=== PATIENT | male | born 1960 | race African-American/Black ===

== ENCOUNTER 2016-06-27 11:28 | Emergency (ER) | payer MEDICAID ==
[~2016-06-27] VITALS: Ht 165.1 cm; Wt 88.5 kg
[~2016-06-27 11:28] MED LIST: ASPI-COR81 M1 PO; ASPIRIN ADULT L81 M3 PO; ATENOLOL25 M1 PO; ATENOLOL25 MG PO; ATORVASTATIN CA40 MG PO; CARISOPRODOL 3350 MG PO; CHOLESTEROL PO; CLONAZEPAM 1MG T1 MG PO; DELTASONE5 MG PO; FLEXERIL10 MG PO; FUROSEMIDE 40MG40 M1 PO; GABAPENTIN 600600 MG PO; GABAPENTIN800 MG PO; GLIPIZIDE10 MG PO; HYDROCHLOROTHIA25 M1 PO; HYDROCODONE-APA1 TA1 PO; HYDROCODONE-APA1 TA2 PO; HYDROCODONE/ACE1 TA5 PO; LASIX 20MG. TAB20 MG PO; LISINOPRIL 20MG20 MG PO; LISINOPRIL HCTZ1 TAB PO; LISINOPRIL40 MG PO; LOMOTIL 0.025 M1 TAB PO; LORTAB 5/500 501 TAB PO; LOVASTATIN40 MG PO; MAGNESIUM CITRA1 BOT PO; MELOXICAM15 MG PO; METFOMIN HYDRO850 MG PO; METFORMIN850 MG PO; NAPROSYN500 M1 PO; NEXIUM40 MG PO; NORFLEX100 MG PO; OMEPRAZOLE20 MG PO; PANTOPRAZOLE SO40 M1 PO; PANTOPRAZOLE SO40 MG PO; PERCOCET 325 MG1 TA4 PO; PERCOGESIC EXTR1 TAB PO; PERCOGESIC1 TAB PO; POTASSIUM CHLO10 ME3 PO; POTASSIUM CHLO10 MEQ PO; PRAVACHOL40 MG PO; PREDNISONE 20MG20 MG PO; PREDNISONE 5MG.5 MG PO; QUETIAPINE FUM100 M2 PO; ROBAXIN 500 MG500 MG PO; ROBAXIN-750750 MG PO; ROPINIROLE HYDRO1 M1 PO; ULTRAM50 MG PO; VENTOLIN H0.09 MG/Ac IH; ZANAFLEX4 M1 PO; ZOFRAN4 MG PO
[2016-06-27] MEDS ORDERED: FLEXERIL10 MG PO (12:18)
--- NOTE | 2016-06-27 12:19 | Emergency Room Report ---
History of Present Illness Time Seen by 1150 Presenting Problem in Triage Pt arrived:Walked Presenting Problem:PT STATES HE HAS NECK PAIN AND NUMBNESS ON THE LEFT SIDE OF HIS NECK THAT GOES DOWN INTO HIS ARM. STARTED 1 WEEK AGO. 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 N Clinical Suspician of Infection? N Mental Status: 1 - Regular (Normal Baseline) Sepsis Risk:Low Sepsis Risk Have you (or family members/close friends) recently traveled outside the [place]? N If Yes, where/when: Have you had exposure to infectious disease within the past month? TB? Other? Specify: Chronic neck pain with exacerbation one year ago; has spasm for the past week to left shoulder which is positional, reports subjective numbness to arm. No diaphoresis, cough, fever, chest pain, syncope or SOB. No edema. ALLERGIES Coded Allergies: naproxen (Mild, NA-NAUSEA/VOMITING 03/16/16) tramadol (Mild, NA-NAUSEA 03/16/16) Home Medications Active Scripts ACETAMINOPHEN/DIPHENHYDRAMINE (Percogesic Extra Str Caplet) 1 TAB PO QIDP PRN pain #30 TAB Prov: 03/07/16 Reported Medications Gabapentin (Gabapentin 800MG) 800 MG PO Q8 #90 Lisinopril (Lisinopril 40MG) 40 MG PO DAILY #15 Potassium Chloride (POTASSIUM CHLORIDE 10mEq CAP) 10 MEQ PO BID #60 Furosemide 40 MG PO DAILY #30 TAB METFORMIN HCL (Metformin HCl) 850 MG PO BID #60 Quetiapine Fumarate 100 MG PO DAILY #30 Atorvastatin Calcium 40 MG PO QHS #30 Aspirin (Aspirin EC) 81 MG PO DAILY #30 Clonazepam (Clonazepam 1MG) 1 MG PO TID #90 ROPINIROLE HCL (Ropinirole Hydrochloride) 1 MG PO QHS #30 HYDROCHLOROTHIAZIDE (Hydrochlorothiazide) 25 MG PO DAILY Glipizide 10 MG PO DAILY History Medical History General CAD? No Angina: Yes [place]: No Hypertension? Yes Hyperlipidemia? Yes CHF? Yes DVT? No PE? No COPD? Yes Asthma? No Anemia? No GERD? No Gastric ulcers? No GI Bleed? No Hernia? No Thyroid Problems? No Hypothyroidism? No CVA? No Seizures? No Diabetes? Yes Insulin Dependent: No Insulin Pump: No Home FSBS? No Renal Insuffiency? Yes End Stage Renal Disease? No UTI? No Stones? Yes BPH? Yes GB Disease: Yes Nephritic Syndrome? No Asplenia? No Hepatitis? No Sickle Cell Disease? No Arthritis? Yes Migraines? No Cataracts? No Glaucoma? No MRSA? No HIV? No TB? No Anxiety? Yes Depression? Yes Cancer? No More? Yes Additional hx: SVT Immunization Hx DT/Tetanus 1-4 YRS Flu Refused Pneumonia Never Had Surgical Hx Previous Surgery?Y GALLBLADDER R KNEE X2 L SHOULDER X 2 Family History Family Hx Diabetes Yes CAD Yes Hypertension Yes Hyperlipidemia Yes Cancer Yes TB No Social History Smoking Hx Smoker: Current Some Day Smoker Tobacco: Yes Type Cigarettes Packs/day 2 1/2 - 3 Packs Alcohol Alcohol: No Review of Systems All Other Systems Reviewed and Negative Musculoskeletal see HPI Psychiatric/Neurological see HPI Physical Exam Vital Signs Vital Signs Date Time Temp Pulse Resp B/P Pulse O2 O2 Flow FiO2 Ox Delivery Rate 06/27 1133 97.8 72 20 179/86 98 General Appearance normal appearance, WD/WN, no apparent distress Eye Exam - bilateral eye normal exam, bilateral eye PERRL, bilateral eye EOMI Neck tender lateral, spasm with trigger point, left trapezius, reproduces pain completely. Worse with abduction of LUE. Respiratory Status Yes: trachea midline, chest symmetrical, tender on palpation. No: respiratory distress, non tender chest, use of accessory muscles, pain on inspiration, pain on expiration, productive cough, non productive cough (see above: L trap. spasm) . Lung Sounds bilateral: normal breath sounds, lungs clear. 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 No Departure Departure Time of Disposition 1214 Disposition DC Home or Self Care(routine) Clinical Impression Primary Impression: Spasm of thoracic back muscle Condition STABLE Patient Instructions DI for Musculoskeletal Pain Additional Instructions Plain Tylenol, Flexeril, see family doctor of choice from list provided in one week for follow up Discharge Counseling Counseled pt/family regarding diagnosis, test results, medications/RX, home care, follow up needs Prescriptions Current Visit Scripts Cyclobenzaprine Hcl (Flexeril) 5 MG PO Q8HP PRN spasm #6 TAB ED Critical Care Critical Care No at 8169
[2016-06-27 12:34] VITALS: BP 179/86
== END 2016-06-27 12:36 | disposition home or self-care (01) ==
LOC: ER 11:28
DX: M62.830 Muscle spasm of back (principal); Z72.0 Tobacco use; F41.8 Other specified anxiety disorders; E11.9 Type 2 diabetes mellitus without complications; J44.9 Chronic obstructive pulmonary disease, unspecified; I10 Essential (primary) hypertension

== ENCOUNTER 2016-07-10 00:21 | Observation (INO) | payer MEDICAID ==
[2016-07-10] VITALS (12 sets, daily range): BP systolic 87–137; BP diastolic 52–87
[~2016-07-10] VITALS: Ht 167.6 cm; Wt 95.0 kg
--- NOTE | 2016-07-10 00:38 | Emergency Room Report ---
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 PT DENIE ANY PRECIPITATING FACTORS. 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 N Clinical Suspician of Infection? N Mental Status: 1 - Regular (Normal Baseline) Sepsis Risk:Severe Sepsis Risk Have you (or family members/close friends) recently traveled outside the [place]? N If Yes, where/when: Have you had exposure to infectious disease within the past month? N TB? Other? Specify: Source patient, RN notes reviewed, EMS, old records Exam Limitations no limitations Comment pt with sudden onset of fast hr - this is the 3rd time since may- no chest pain prior to event - he denied any cocaine - pt has not seen card - no known heart disease Cardiac Chest Pain Chest pain indicative of cardiac No Timing/Duration this evening Severity moderate ALLERGIES Coded Allergies: naproxen (Mild, NA-NAUSEA/VOMITING 03/16/16) tramadol (Mild, NA-NAUSEA 03/16/16) Home Medications Active Scripts Cyclobenzaprine Hcl (Flexeril) 5 MG PO Q8HP PRN spasm #6 TAB Prov: 06/27/16 ACETAMINOPHEN/DIPHENHYDRAMINE (Percogesic Extra Str Caplet) 1 TAB PO QIDP PRN pain #30 TAB Prov: 03/07/16 Reported Medications Gabapentin (Gabapentin 800MG) 800 MG PO Q8 #90 Lisinopril (Lisinopril 40MG) 40 MG PO DAILY #15 Potassium Chloride (POTASSIUM CHLORIDE 10mEq CAP) 10 MEQ PO BID #60 Furosemide 40 MG PO DAILY #30 TAB METFORMIN HCL (Metformin HCl) 850 MG PO BID #60 Quetiapine Fumarate 100 MG PO DAILY #30 Atorvastatin Calcium 40 MG PO QHS #30 Aspirin (Aspirin EC) 81 MG PO DAILY #30 Clonazepam (Clonazepam 1MG) 1 MG PO TID #90 ROPINIROLE HCL (Ropinirole Hydrochloride) 1 MG PO QHS #30 HYDROCHLOROTHIAZIDE (Hydrochlorothiazide) 25 MG PO DAILY Glipizide 10 MG PO DAILY History Medical History General CAD? No Angina: Yes [place]: No Hypertension? Yes Hyperlipidemia? Yes CHF? Yes DVT? No PE? No COPD? Yes Asthma? No Anemia? No GERD? No Gastric ulcers? No GI Bleed? No Hernia? No Thyroid Problems? No Hypothyroidism? No CVA? No Seizures? No Diabetes? Yes Insulin Dependent: No Insulin Pump: No Home FSBS? No Renal Insuffiency? Yes End Stage Renal Disease? No UTI? No Stones? Yes BPH? Yes GB Disease: Yes Nephritic Syndrome? No Asplenia? No Hepatitis? No Sickle Cell Disease? No Arthritis? Yes Migraines? No Cataracts? No Glaucoma? No MRSA? No HIV? No TB? No Anxiety? Yes Depression? Yes Cancer? No More? Yes Additional hx: SVT Immunization Hx DT/Tetanus 1-4 YRS Flu Refused Pneumonia Never Had Surgical Hx Previous Surgery?Y GALLBLADDER R KNEE X2 L SHOULDER X 2 Family History Family Hx Diabetes Yes CAD Yes Hypertension Yes Hyperlipidemia Yes Cancer Yes TB No Social History Smoking Hx Smoker: Current Every Day Smoker Tobacco: Yes Type Cigarettes Packs/day 2 1/2 - 3 Packs Alcohol Alcohol: No Drugs none Review of Systems All Other Systems Reviewed and Negative Constitutional denies fever Eyes denies drainage ENT denies: ear discharge, epistaxis, throat pain. Respiratory denies cough, denies shortness of breath, denies wheezing Cardiovascular denies chest pain, denies syncope Gastrointestinal denies abdominal pain, denies diarrhea, denies vomiting Genitourinary denies: dysuria, frequency, hesitancy, hematuria. Musculoskeletal denies back pain, denies joint pain, denies neck pain Skin denies rash Psychiatric/Neurological denies headache, denies seizure Physical Exam Vital Signs Vital Signs Date Time Temp Pulse Resp B/P Pulse O2 O2 Flow FiO2 Ox Delivery Rate 07/10 0022 98.2 174 18 87/52 94 General Appearance no apparent distress Eye Exam - bilateral eye PERRL, bilateral eye EOMI Ear, Nose, Throat normal ENT inspection Neck supple Respiratory Status No: respiratory distress. Lung Sounds bilateral: rhonchi. 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 No Results/Orders Laboratory Tests 07/10/16 0033: POC Glucose 180 H 07/10/16 0025: Sodium 139, Potassium 3.9, Chloride 104, Carbon Dioxide 24, BUN 11, Creatinine 1.2, Estimated Creat Clear 91, Estimated GFR (MDRD) 63, Glucose 184 H, Calcium 8.5, Magnesium 1.7, Total Bilirubin 0.6, AST 26, ALT 24, Alkaline Phosphatase 109, Creatine Kinase 212, CK-MB (CK-2) Rel Index 0.6, CK and CKMB Interp 1.3, Troponin I < 0.02, Total Protein 6.5, Albumin 3.3 L, Globulin 3.2, Albumin/ Globulin Ratio 1.0 L, TSH 1.80, Thyroxine (T4) 8.6, WBC 6.7, RBC 4.65, Hgb 15.0 , Hct 46.1, MCV 99.1 H, RDW 15.0, Plt Count 293, MPV 6.0 L, Gran % 55.0, Gran # 3.7, Lymphocytes % 36.3, Monocytes % 6.1, Eosinophils % 2.0, Basophils % 0.6, Lymphocytes # 2.4, Monocytes # 0.4, Eosinophils # 0.1, Basophils # 0.0, PUBS MCHC 32.6, MCH 32.3 H, Alcohols 0 Current Medication Orders Sig/Gia Start time Last Medication Dose Route Stop Time Status Admin Diltiazem HCl 10 MG ONCE ONE 07/10 44 DC 07/10 IV 07/10 0046 0042 Diltiazem HCl 100 MG ONCE ONE 07/10 44 AC 07/10 Sodium Chloride 100 ML IV 07/104 0042 Sodium Chloride 10 ML PRN PRN 07/10 44 AC IV 07/11 003 Sodium Chloride 1,000 ML .Q1H1M 07/10 44 AC 07/10 IV 07/10 0145 0042 Sodium Chloride 10 ML PRN PRN 07/10 44 AC IV 07/11 003 Sodium Chloride 1,000 ML .STK-MED ONE 07/10 0038 DC IV Diltiazem HCl 0 .STK-MED ONE 07/10 0037 DC IV Diltiazem HCl 0 .STK-MED ONE 07/10 0036 DC IV Sodium Chloride 100 ML .STK-MED ONE 07/10 0036 DC IV Orders Procedure Date/time Status Decision to admit 07/10 0112 Active ELECTROCARDIOGRAM REQUEST 07/10 33 Active CHEST-PORTABLE 07/10 003 Active IV SALINE LOCK 07/10 003 Active URINALYSIS/COMPLETE 07/10 33 Active THYROID STIMULATING HORMONE 07/10 33 Complete THYROXINE (T4) 07/10 33 Complete MAGNESIUM 07/10 33 Complete DRUG ABUSE SCREEN (TRIAGE) 07/10 003 Active COMPLETE METABOLIC PANEL 07/10 003 Complete CBC WITH AUTO DIFF 07/10 33 Complete CARDIAC ENZYMES 07/10 33 Complete ALCOHOL 07/10 33 Complete FINGERSTICK BLOOD SUGAR 07/10 0033 Complete CM/EKG CM/EKG 1 Monitor Rhythm Supra Ventricular Tach EKG ST depression CM/EKG 2 Monitor Rhythm Normal Sinus Rhythm EKG non-spec. ST/Twave chgs XRAY/CT/US XRAY/CT/US XRAY chest XR interpretation by reviewed by me Xray Results abnormal (cm) Departure Departure Time of Disposition 0111 Disposition Still a Patient Clinical Impression Primary Impression: Cardiac arrhythmia Qualifiers: Arrhythmia type: supraventricular tachycardia Qualified Code: I47.1 - Supraventricular tachycardia Secondary Impressions: Diabetes mellitus Qualifiers: Diabetes mellitus type: type 2 Diabetes mellitus complication status: with unspecified complications Diabetes mellitus retirement insulin use: with retirement use Qualified Code: E11.8 - Type 2 diabetes mellitus with unspecified complications Condition STABLE ED Critical Care Critical Care No at 0130
[2016-07-10 00:44] LABS: LYMPH # 2.4 K/mm3 (0.7-4.5); LYMPH % 36.3 % (10-50)
[2016-07-10 01:10] LABS: BUN 11 mg/dL (7-18); GFR (ESTIMATED) 63 ML/MIN (>60)
--- NOTE | 2016-07-10 07:31 | PHARMACY CLINIC NOTE ---
Patient Demographics Patient Demographics Admission date: 07/10/16 Date: 07/10/16 Time: 0731 Allergies Coded Allergies: naproxen (Mild, NA-NAUSEA/VOMITING 03/16/16) tramadol (Mild, NA-NAUSEA 03/16/16) HEIGHT- FT: 5 IN: 6.00 K.243 VTE General Information Labs: Laboratory Tests 07/10 0025 Hematology Hgb (14.1 - 18.0 g/dL) 15.0 Hct (42.0 - 52.0 %) 46.1 Plt Count (142 - 424 K/mm3) 293 Disclaimer The following section includes nursing documentation that has been pulled in for pharmacy review. Patient's VTE score: 4 Patient's VTE Risk: LOW RISK Clinical trial participant? No VTE prophylaxis [id number] VTE prophylaxis ordered? Yes Type of prophylaxis/treatment: YOSSI at 0731
--- NOTE | 2016-07-10 08:04 | RADIOLOGY REPORT PS360 ---
CHEST-PORTABLE HISTORY: Shortness of breath sob ORDERING PHYSICIAN: Ranjan South MD PATIENT AGE: 55 years COMPARISON: 05/08/2016 FINDINGS: There is motion artifact with low lung volumes. Atelectatic or fibrotic changes present in the right lower lobe. There is increased markings in the mid and lower lung zones likely accentuated by the low lung volumes and portable technique. Peribronchial inflammatory changes/pneumonitis is considered. Upright PA and lateral chest suggested for further evaluation if patient can tolerate. IMPRESSION: 1. Increased markings in the mid and lower lung zones likely accentuated by the low lung volumes and portable technique. Pneumonitis is however considered as well
--- NOTE | 2016-07-10 08:11 | CONSULT NOTE ---
See Addendum Standard Demographics Patient Demo Date of Consultation: 07/10/16 Referring Provider: Shivani South MD Reason for Consultation: SVT, NSTEMI PRIMARY DIAGNOSIS: CARDIAC ARRHYTHIAMA Problem list Problem list: 1. Coronary artery disease, mild nonflow limiting disease by cath 04/2015 2. Diabetes mellitus treated for about 8 years 3. Tobacco use 4. Hypertension 5. Hyperlipidemia 6. Chronic obstructive pulmonary disease 7. Obesity History of present illness: History of present illness: 55-year-old black male with known diabetes, hypertension, hyperlipidemia and mild coronary disease with previous cath in April 2015 present to the emergency department last evening for chest discomfort, pressure, heaviness. Symptoms onset at rest. In the emergency department heart rate of found to be in the 170s beats per minute range. Electrocardiogram revealed supraventricular tachycardia with inferior and lateral ST segment depression. Patient had been treated with 3 doses of adenosine in route in the ambulance without success in converting the patient was sinus rhythm. He was given IV Cardizem in the emergency room with subsequent conversion to sinus rhythm. Patient relates symptoms dramatically improved but have not completely resolved. He complains of a soreness in the chest which is worse with movement and deep breathing. Patient 's troponins have returned positive overnight. Cardiology consulted for further evaluation and treatment. Patient does relate recent hospitalization at [facility] for similar episode. He was referred to cardiology for possible ablation therapy in June but the patient was unable to keep the appointment and has not rescheduled. He states the metoprolol to his placed on has not significantly altered frequency or duration of the symptoms. Past Medical History: General: Hypertension Yes CVA No Seizures No TB No COPD Yes Asthma No Diabetes Yes Insulin Dependent No Insulin Pump No Angina Yes OK No Hyperlipidemia Yes Urinary No Cancer No Rheumatic H.D. No Ulcers No MRSA No GB Disease Yes Other WEEKLY Additional hx SVT Past Surgical HX: Previous Surgery?Y GALLBLADDER R KNEE X2 L SHOULDER X 2 Allergies Coded Allergies: naproxen (Mild, NA-NAUSEA/VOMITING 03/16/16) tramadol (Mild, NA-NAUSEA 03/16/16) Home medications: Active Scripts Cyclobenzaprine Hcl (Flexeril) 5 MG PO Q8HP PRN spasm #6 TAB Prov: 06/27/16 ACETAMINOPHEN/DIPHENHYDRAMINE (Percogesic Extra Str Caplet) 1 TAB PO QIDP PRN pain #30 TAB Prov: 03/07/16 Reported Medications Gabapentin (Gabapentin 800MG) 800 MG PO Q8 #90 Lisinopril (Lisinopril 40MG) 40 MG PO DAILY #15 Potassium Chloride (POTASSIUM CHLORIDE 10mEq CAP) 10 MEQ PO BID #60 Furosemide 40 MG PO DAILY #30 TAB METFORMIN HCL (Metformin HCl) 850 MG PO BID #60 Quetiapine Fumarate 100 MG PO DAILY #30 Atorvastatin Calcium 40 MG PO QHS #30 Aspirin (Aspirin EC) 81 MG PO DAILY #30 Clonazepam (Clonazepam 1MG) 1 MG PO TID #90 ROPINIROLE HCL (Ropinirole Hydrochloride) 1 MG PO QHS #30 HYDROCHLOROTHIAZIDE (Hydrochlorothiazide) 25 MG PO DAILY Glipizide 10 MG PO DAILY Current Medications: Current Medications Aspirin 81 MG DAILY PO Gabapentin 800 MG TID PO Lisinopril 40 MG DAILY PO Polyethylene Glycol 17 GM DAILY PO Fentanyl Citrate 25 MCG PRN PRN IV Fentanyl Citrate 50 MCG PRN PRN IV Flumazenil 0.2 MG PRN PRN IV Heparin Sodium/Sodium Chloride 3,000 UNITS PRN PRN IV Lidocaine HCl 20 ML ONCE ONE IJ Midazolam HCl 1 MG PRN PRN IV Midazolam HCl 1 MG PRN PRN IV Naloxone HCl 0.4 MG [id number] PRN IV Nitroglycerin 800 MCG PRN PRN IV Verapamil HCl 5 MG PRN PRN IV (UNV) Sodium Chloride 10 ML PRN PRN IV Diagnostic Test (Pha) 1 EACH W/MEALS&HS FS Insulin Human [rDNA origin] SEE ADMIN CRITERIA FOR LOW INTENSITY SS W/MEALS&HS SC Acetaminophen 650 MG Q4HP PRN PO Nicotine 21 MG DAILYP PRN TD Ondansetron HCl 4 MG Q6HP PRN IV Sodium Chloride 1,000 ML .[id number] IV Diltiazem HCl 10 MG ONCE ONE IV (DC) Diltiazem HCl 100 MG ONCE ONE IV Sodium Chloride 100 ML Sodium Chloride 10 ML PRN PRN IV Sodium Chloride 1,000 ML .Q1H1M IV (DC) Sodium Chloride 10 ML PRN PRN IV Sodium Chloride 1,000 ML .STK-MED ONE IV (DC) Diltiazem HCl 0 .STK-MED ONE IV (DC) Diltiazem HCl 0 .STK-MED ONE IV (DC) Sodium Chloride 100 ML .STK-MED ONE IV (DC) Immunization HX DT/Tetanus Unknown Flu Refused Pneumonia Refuses TB Test in last year Yes Result Unknown Family history Family HX Family Hx Insignificant No Diabetes Yes CAD Yes Hypertension Yes Hyperlipidemia Yes Cancer Yes TB No Social Hx: Smoking HX Tobacco Yes Type Cigarettes Packs/day < 1 PACK Are you/the child exposed to second-hand smoke: Yes Alcohol Alcohol: Yes How much do you drink ONCE A MONTH For how long Longer Than 5 Years When was your last drink 12-24 Hours Ago Hx of Drug Use Drug Use? Yes Drug(s) of Choice: marijuana Review of systems: Constitutional No: no symptoms reported. Respiratory cough, SOB with excertion. Cardiovascular see HPI, chest pain, palpitations Gastrointestinal/Abdominal No no symptoms reported Genitourinary No: no symptoms reported. Musculoskeletal No: no symptoms reported. Neurological No: no symptoms reported. Exam: Admission Vital Signs: 1ST Vital Signs Result Date Time Pulse Ox 94 07/10 0022 B/P 87/52 07/10 0022 Temp 98.2 07/10 0022 Pulse 174 07/10 0022 Resp 18 07/10 0022 O2 Flow Rate 2 07/10 0113 O2 Delivery OXYGEN 07/10 0216 Last Vital Signs: Vital Signs Result Date Time Pulse Ox 99 07/10 0633 B/P 137/80 07/10 732 O2 Delivery OXYGEN 07/10 732 O2 Flow Rate 2 07/10 732 Temp 97.9 07/10 732 Pulse 65 07/10 0633 Resp 18 07/10 0633 Exam General appearance: alert, awake, no acute distress Neck: no carotid bruit, no JVD Cardiovascular: regular rate & rhythm, no murmur Respiratory: diminished breath sounds, rhonchi, wheezing ABD: soft, no tenderness Extremities: moves all, no peripheral edema Neuro: alert, intact, oriented, speech clear Laboratory data: Laboratory Tests 07/10/16 0620: Creatine Kinase 145, CK-MB (CK-2) Rel Index 1.7, CK and CKMB Interp 2.5, Troponin I 0.50 H 07/10/16 0310: Creatine Kinase 164, CK-MB (CK-2) Rel Index 1.0, CK and CKMB Interp 1.7, Troponin I 0.18 H 07/10/16 0033: POC Glucose 180 H 07/10/16 0025: Hemoglobin A1c 5.7 07/10/16 0025: B-Natriuretic Peptide 11 07/10/16 0025: Sodium 139, Potassium 3.9, Chloride 104, Carbon Dioxide 24, BUN 11, Creatinine 1.2, Estimated Creat Clear 91, Estimated GFR (MDRD) 63, Glucose 184 H, Calcium 8.5, Magnesium 1.7, Total Bilirubin 0.6, AST 26, ALT 24, Alkaline Phosphatase 109, Creatine Kinase 212, CK-MB (CK-2) Rel Index 0.6, CK and CKMB Interp 1.3, Troponin I < 0.02, Total Protein 6.5, Albumin 3.3 L, Globulin 3.2, Albumin/ Globulin Ratio 1.0 L, TSH 1.80, Thyroxine (T4) 8.6, WBC 6.7, RBC 4.65, Hgb 15.0 , Hct 46.1, MCV 99.1 H, RDW 15.0, Plt Count 293, MPV 6.0 L, Gran % 55.0, Gran # 3.7, Lymphocytes % 36.3, Monocytes % 6.1, Eosinophils % 2.0, Basophils % 0.6, Lymphocytes # 2.4, Monocytes # 0.4, Eosinophils # 0.1, Basophils # 0.0, PUBS MCHC 32.6, MCH 32.3 H, Alcohols 0 Plan: Assessment: 1. Paroxysmal supraventricular tachycardia with conversion to sinus rhythm after IV Cardizem. Thyroid functions normal. 2. Non-STEMI felt secondary to supraventricular tachycardia but with patient having known nonflow limiting coronary disease in 2014 and being a long-term diabetic would recommend repeating cardiac catheterization at this time. 3. Hypertension 4. Hyperlipidemia 5. Tobacco use Recommendations: Discussed with Dr. Arroyo. See above. at 2505
--- NOTE | 2016-07-10 09:29 | HISTORY AND PHYSICAL REPORT ---
Demographics: Admit date: 07/10/16 Chief complaint: svt PRIMARY DIAGNOSIS: CARDIAC ARRHYTHIAMA Allergies: Coded Allergies: naproxen (Mild, NA-NAUSEA/VOMITING 03/16/16) tramadol (Mild, NA-NAUSEA 03/16/16) History of present illness: History of present illness: 55-year-old black male with known diabetes, hypertension, hyperlipidemia and mild coronary disease with previous cath in April 2015 present to the emergency department last evening for chest discomfort, pressure, heaviness. Symptoms onset at rest. In the emergency department heart rate of found to be in the 170s beats per minute range. Electrocardiogram revealed supraventricular tachycardia with inferior and lateral ST segment depression. Patient had been treated with 3 doses of adenosine in route in the ambulance without success in converting the patient was sinus rhythm. He was given IV Cardizem in the emergency room with subsequent conversion to sinus rhythm. Patient relates symptoms dramatically improved but have not completely resolved. He complains of a soreness in the chest which is worse with movement and deep breathing. Patient 's troponins have returned positive overnight. Cardiology consulted for further evaluation and treatment. Patient does relate recent hospitalization at [facility] for similar episode. He was referred to cardiology for possible ablation therapy in June but the patient was unable to keep the appointment and has not rescheduled. He states the metoprolol to his placed on has not significantly altered frequency or duration of the symptoms. Past medical history: Family HX Diabetes Yes CAD Yes Hypertension Yes Hyperlipidemia Yes Cancer Yes TB No Immunization HX DT/Tetanus Unknown Flu Refused Pneumonia Refuses TB Test in last year Yes Result Unknown General CAD? No Angina: Yes PR: No Hypertension? Yes Hyperlipidemia? Yes CHF? Yes DVT? No PE? No COPD? Yes Asthma? No Anemia? No GERD? No Gastric ulcers? No GI Bleed? No Hernia? No Thyroid Problems? No Hypothyroidism? No CVA? No Seizures? No Diabetes? Yes Insulin Dependent: No Insulin Pump: No Home FSBS? No Renal Insuffiency? Yes UTI? No Stones? Yes BPH? Yes GB Disease: Yes Nephritic Syndrome? No Asplenia? No Hepatitis? No Sickle Cell Disease? No Arthritis? Yes Migraines? No Cataracts? No Glaucoma? No MRSA? No HIV? No TB? No Anxiety? Yes Depression? Yes Cancer? No More? Yes Additional hx: SVT Past Surgical HX Previous Surgery?Y GALLBLADDER R KNEE X2 L SHOULDER X 2 Current home meds: Active Scripts Cyclobenzaprine Hcl (Flexeril) 5 MG PO Q8HP PRN spasm #6 TAB Prov: 06/27/16 ACETAMINOPHEN/DIPHENHYDRAMINE (Percogesic Extra Str Caplet) 1 TAB PO QIDP PRN pain #30 TAB Prov: 03/07/16 Reported Medications Gabapentin (Gabapentin 800MG) 800 MG PO Q8 #90 Lisinopril (Lisinopril 40MG) 40 MG PO DAILY #15 Potassium Chloride (POTASSIUM CHLORIDE 10mEq CAP) 10 MEQ PO BID #60 Furosemide 40 MG PO DAILY #30 TAB METFORMIN HCL (Metformin HCl) 850 MG PO BID #60 Quetiapine Fumarate 100 MG PO DAILY #30 Atorvastatin Calcium 40 MG PO QHS #30 Aspirin (Aspirin EC) 81 MG PO DAILY #30 Clonazepam (Clonazepam 1MG) 1 MG PO TID #90 ROPINIROLE HCL (Ropinirole Hydrochloride) 1 MG PO QHS #30 HYDROCHLOROTHIAZIDE (Hydrochlorothiazide) 25 MG PO DAILY Glipizide 10 MG PO DAILY Social Hx: Smoking HX Tobacco Yes Type Cigarettes Packs/day < 1 PACK Are you/the child exposed to second-hand smoke: Yes Alcohol Alcohol: Yes How much do you drink ONCE A MONTH For how long Longer Than 5 Years When was your last drink 12-24 Hours Ago Hx of Drug Use Drug Use? Yes Drug(s) of Choice: marijuana Patien't marital status is Patient's support system is good Review of systems: Constitutional No: fever. Eyes No: drainage. Ears, Nose, Mouth, Throat No ear pain, No epistaxis, No throat pain Respiratory No: cough, wheezing. Cardiovascular see HPI, No chest pain, palpitations, No syncope Gastrointestinal/Abdominal No abdominal pain Genitourinary No: dysuria, frequency, hesitancy, hematuria. Musculoskeletal No: back pain, joint pain, joint swelling, neck pain. Skin No: rash. Neurological No: seizure disorder. Psychiatric No: depressed. Exam: Lab data for last 24 hours: Laboratory Tests 07/10/16 0833: POC Glucose 93 07/10/16 0620: Creatine Kinase 145, CK-MB (CK-2) Rel Index 1.7, CK and CKMB Interp 2.5, Troponin I 0.50 H 07/10/16 0310: Creatine Kinase 164, CK-MB (CK-2) Rel Index 1.0, CK and CKMB Interp 1.7, Troponin I 0.18 H 07/10/16 0033: POC Glucose 180 H 07/10/16 0025: Hemoglobin A1c 5.7 07/10/16 0025: B-Natriuretic Peptide 11 07/10/16 0025: Sodium 139, Potassium 3.9, Chloride 104, Carbon Dioxide 24, BUN 11, Creatinine 1.2, Estimated Creat Clear 91, Estimated GFR (MDRD) 63, Glucose 184 H, Calcium 8.5, Magnesium 1.7, Total Bilirubin 0.6, AST 26, ALT 24, Alkaline Phosphatase 109, Creatine Kinase 212, CK-MB (CK-2) Rel Index 0.6, CK and CKMB Interp 1.3, Troponin I < 0.02, Total Protein 6.5, Albumin 3.3 L, Globulin 3.2, Albumin/ Globulin Ratio 1.0 L, TSH 1.80, Thyroxine (T4) 8.6, WBC 6.7, RBC 4.65, Hgb 15.0 , Hct 46.1, MCV 99.1 H, RDW 15.0, Plt Count 293, MPV 6.0 L, Gran % 55.0, Gran # 3.7, Lymphocytes % 36.3, Monocytes % 6.1, Eosinophils % 2.0, Basophils % 0.6, Lymphocytes # 2.4, Monocytes # 0.4, Eosinophils # 0.1, Basophils # 0.0, PUBS MCHC 32.6, MCH 32.3 H, Alcohols 0 Admission vital signs: 1ST Vital Signs Result Date Time Pulse Ox 94 07/10 21 B/P 87/52 07/10 21 Temp 98.2 07/10 21 Pulse 174 07/10 21 Resp 18 07/10 21 O2 Flow Rate 2 07/10 0113 O2 Delivery OXYGEN 07/10 215 Exam General appearance: alert Eyes: PERRLA ENT: dry mucous membranes Neck: no JVD Cardiovascular: regular rate & rhythm, murmur Respiratory: clear to auscultation ABD: no rebound Genitourinary: no hematuria Extremities: moves all Musculoskeletal: equal muscle strength Skin: intact Neuro: alert, 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 Cardiac arrhythmia 2. SVT (supraventricular tachycardia) 3. Diabetes mellitus 4. Non-STEMI (non-ST elevated myocardial infarction) Plan: pt will have cath today at 0957
--- NOTE | 2016-07-10 10:22 | RADIOLOGY REPORT PS360 ---
CARDIAC CATHETERIZATION DATE OF CATHETERIZATION:07/10/2016 10:03 AM PROCEDURES: 1. Left heart catheterization 2. Left ventriculogram 3. Selective coronary angiogram INDICATION FOR TEST: 1. Acute non-ST elevation myocardial infarction Informed consent was obtained prior to the procedure. COMPLICATIONS: None ESTIMATED BLOOD LOSS: Less than 10 ml. TECHNIQUE: One percent lidocaine was used to anesthetize the right groin. The right femoral artery was accessed via the Seldinger technique. A 4-Upper Sorbian sheath was placed in the right femoral artery. The JL-4 and JR-4 catheter was also used to perform left heart catheterization and left ventriculography. At the end of the procedure the patient was transferred to the post-op holding area in stable condition for arterial sheath removal. ANGIOGRAPHIC RESULTS: 1. The left main artery normal 2. The left anterior descending artery has mild luminal irregularities and atheromatous plaque with no stenosis greater than 10-20% 3. The circumflex artery has mild luminal irregularities with no stenosis greater than 10% 4. The right coronary artery is dominant and has proximal concentric 30-40% mid vessel 30-40% distal 30-40% stenoses. 5. The [place] ventriculogram reveals normal 65% 6. The left ventricular end-diastolic pressure mildly elevated 18 mmHg IMPRESSION: 1. Mild luminal irregularities in the LAD N nondominant circumflex artery 2. Moderate nonflow limiting atheromatous plaque throughout the proximal mid distal dominant right coronary artery 3. Normal ejection fraction 4. Mild the elevated LVEDP PLAN: 1. Patient needs aggressive risk factor modification 2. Aspirin Plavix for one year because of his non-STEMI 3. LDL goal less than 70 4. Patient should be started on beta blockers because of his SVT. Patient's non-ST elevation myocardial infarction came from demand ischemia from prolonged tachycardia of 180 bpm. Try to give patient a high dose of beta blockers and possibly even add low-dose diltiazem such as 120 or 180 mg of long-acting daily 5. Patient should be referred to electrophysiology for definitive therapy with radiofrequency ablation of the supraventricular tachycardia
--- NOTE | 2016-07-10 14:54 | RADIOLOGY REPORT PS360 ---
PROCEDURE: 2-D M-mode and color Doppler study INDICATIONS FOR THE TEST: Chest pain + COPD Heart Murmur+ Tobacco Smoking+ Palpitations Fatigue Syncope Edema Hypertension+Diabetes Mellitus+ Rheumatic Fever SOB GARCIA Obesity Hyperlipidemia Family History HD Additional History SVT PATIENT INFORMATION HEIGHT: 66 WEIGHT:205 GENDER: Male B/P: 2-D/M-MODE INTERPRETATION: 2-D MEASUREMENTS OBSERVED VALUES IN CMS Right Ventricular Dimension (RVDd) 2.6 Interventricular Septum (Thickness)(IVsd) 1.4 Left Ventricular Internal Dimensions(LVIDd) 4.7 Left Ventricular Posterior Wall (Thickness)(LVPWd) 1.1 Aortic Root 2.8 Aortic Cusp Separation 2.0 Left Atrial Dimensions (LAD) 4.4 2D 1. Left atrium is mildly enlarged, left ventricle is normal size, there is mild concentric left ventricular hypertrophy present, visually estimated ejection fraction of 50%, there appears to be mild hypokinesis involving the distal septum and apical wall. 2. The right atrium is normal size, the right ventricle is mildly qualitatively enlarged with normal contractility. 3. The aortic valve is minimally thickened and fibrosed, there is no aortic stenosis. 4. The mitral valve leaflets are minimally thickened there is no mitral stenosis. 5. The tricuspid valve restructure normal. 6. The pulmonic valve is not well visualized. 7. No significant pericardial effusion noted. DOPPLER INTERROGATION: 1. The aortic out flow velocity within normal range, there is no aortic stenosis, there is trace aortic insufficiency. 2. The mitral inflow velocities within normal range, there is no mitral stenosis, there is moderate mitral regurgitation as evidenced by color flow mapping. 3. There is mild tricuspid regurgitation noted, tricuspid regurgitant jet velocity is insufficient for calculation of the right ventricular systolic pressure. CONCLUSION: 1. Normal left ventricular size, mild concentric left ventricular hypertrophy, visually estimated ejection fraction of 50% with segmental wall motion abnormality as described above. 2. Moderate mitral and mild tricuspid regurgitation. 3. No significant pericardial effusion noted.
[2016-07-10] MEDS ORDERED: HYDROCHLOROTHIA1 TA2 PO (16:41)
[2016-07-10] MEDS ORDERED: GLIPIZIDE10 M3 PO (16:41)
[2016-07-10] MEDS ORDERED: LISINOPRIL40 MG PO (16:42)
[2016-07-10] MEDS ORDERED: ATORVASTATIN CA10 M1 PO (16:42)
[2016-07-11 04:31] VITALS: BP 148/76
[2016-07-11 07:08] LABS: LYMPH # 2.3 K/mm3 (0.7-4.5); LYMPH % 45.4 % (10-50)
[2016-07-11 07:16] LABS: HEMOGLOBIN 13.1 g/dL (14.1-18.0)
--- NOTE | 2016-07-11 08:20 | ACUTE CARE PROGRESS NOTE (QUA) ---
Progress Notes Subjective Date 07/11/16 Time 0813 Note 55 yo BM in bed in NAD. Still complaining of chest pain that has been present since before admission. States allergic to anti-inflammatory meds due to rash. States pain improved with morphine last night. Objective Findings Last VS-Temp:97.4 B/P:148/76 Pulse:86 Resp:16 SaO2:97 OXYGEN Last weight lbs:209 oz:6 K.971 Method:Bed Scales Exam General appearance: alert, awake, no acute distress Cardiovascular: regular rate & rhythm Respiratory: clear to auscultation Reviewed: medications, vital signs, lab results Assessment/Plan Problem List 1. Cardiac arrhythmia Qualifiers: Arrhythmia type: supraventricular tachycardia Qualified Code: I47.1 - Supraventricular tachycardia 2. SVT (supraventricular tachycardia) Assessment/Plan: No recurrence of SVT on combination of metoprolol and cardizem. Will increase cardizem to 180 mg daily. Will refer to EP for ablation therapy. Ok to discharge home from cardiac standpoint. 3. Diabetes mellitus Qualifiers: Diabetes mellitus type: type 2 Diabetes mellitus complication status: with unspecified complications Diabetes mellitus intermodal dispatcher insulin use: with care home use Qualified Code: E11.8 - Type 2 diabetes mellitus with unspecified complications 4. Non-STEMI (non-ST elevated myocardial infarction) Assessment/Plan: Secondary to SVT and demand ischemia. Cardiac cath yesterday shows non-flow limiting disease for which medical therapy recommended. Patient condition Stable Plan: See above. Follow up in one week. This inpt stay is expected to cross 2 MNs from start of care Yes at 0819
--- NOTE | 2016-07-11 08:20 | ACUTE CARE PROGRESS NOTE (QUA) ---
Progress Notes Subjective Date 07/11/16 Time 0813 Note 55 yo BM in bed in NAD. Still complaining of chest pain that has been present since before admission. States allergic to anti-inflammatory meds due to rash. States pain improved with morphine last night. Objective Findings Last VS-Temp:97.4 B/P:148/76 Pulse:86 Resp:16 SaO2:97 OXYGEN Last weight lbs:209 oz:6 K.971 Method:Bed Scales Exam General appearance: alert, awake, no acute distress Cardiovascular: regular rate & rhythm Respiratory: clear to auscultation Reviewed: medications, vital signs, lab results Assessment/Plan Problem List 1. Cardiac arrhythmia Qualifiers: Arrhythmia type: supraventricular tachycardia Qualified Code: I47.1 - Supraventricular tachycardia 2. SVT (supraventricular tachycardia) Assessment/Plan: No recurrence of SVT on combination of metoprolol and cardizem. Will increase cardizem to 180 mg daily. Will refer to EP for ablation therapy. Ok to discharge home from cardiac standpoint. 3. 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 Non-STEMI (non-ST elevated myocardial infarction) Assessment/Plan: Secondary to SVT and demand ischemia. Cardiac cath yesterday shows non-flow limiting disease for which medical therapy recommended. Patient condition Stable Plan: See above. Follow up in one week. This inpt stay is expected to cross 2 MNs from start of care Yes at 0819
[2016-07-11 08:32] VITALS: BP 157/88
[2016-07-11] MEDS ORDERED: TIAZAC180 MG PO (09:40)
[2016-07-11] MEDS ORDERED: CLOPIDOGREL75 M1 PO (09:40)
[2016-07-11] MEDS ORDERED: LOPRESSOR 25MG.25 MG PO (09:40)
[2016-07-11] MEDS ORDERED: ASPIR 8181 MG PO (09:40)
--- NOTE | 2016-07-11 09:43 | ACUTE CARE PROGRESS NOTE (QUA) ---
Progress Notes Subjective Date 07/11/16 Time 0940 Patient/family reports: feeling better, pain Nursing reports: alert Objective Findings Laboratory Tests 07/11/16 0625: Sodium 139, Potassium 3.9, Chloride 108 H, Carbon Dioxide 27, BUN 7, Creatinine 0.9, Estimated Creat Clear 128, Estimated GFR (MDRD) 88, Glucose 146 H, Calcium 8.4 L, WBC 5.0, RBC 3.96 L, Hgb 13.1 L, Hct 39.8 L, MCV 100.5 H, RDW 15.1, Plt Count 243, MPV 6.2 L, Gran % 45.7, Gran # 2.3, Lymphocytes % 45.4, Monocytes % 6.0, Eosinophils % 2.3, Basophils % 0.6, Lymphocytes # 2.3, Monocytes # 0.3, Eosinophils # 0.1, Basophils # 0.0, PUBS MCHC 32.6, MCH 32.7 H 07/10/16 1729: POC Glucose 97 07/10/16 1220: POC Glucose 90 Vital Signs Date Time Temp Pulse Resp B/P Pulse O2 O2 Flow FiO2 Ox Delivery Rate 07/11 0832 98.1 56 16 157/88 90 OXYGEN 07/11 0642 2 07/11 0530 2 07/11 0525 16 07/11 0431 97.4 86 16 148/76 97 OXYGEN 07/11 0309 16 07/11 0305 2 07/11 0105 2 07/11 0100 16 07/10 2358 98.0 72 16 128/75 96 OXYGEN 07/10 2315 2 07/10 2245 16 07/10 2110 2 07/10 2040 16 07/10 2034 4 07/10 2034 92 ROOM AIR 07/10 2030 97.9 71 16 117/68 96 2 / 1958 97.9 71 16 117/68 97 OXYGEN / 1905 2 /08 1800 72 137/87 99 OXYGEN 2 07/10 1730 2 02/08 1700 68 108/75 02/08 1600 67 126/78 02/08 1500 2 02/08 1500 80 124/72 02/08 1350 97.9 73 20 133/80 99 OXYGEN 02/08 1347 73 20 133/80 02/08 1346 97.9 73 20 133/80 99 OXYGEN 02/08 1346 97.9 55 20 143/83 99 OXYGEN 02/08 1258 97.9 55 20 115/71 99 OXYGEN 02/08 1258 97.9 55 20 120/75 99 OXYGEN 02/08 1257 97.9 55 20 125/76 99 OXYGEN 02/08 1257 97.9 59 20 117/75 99 OXYGEN 02/08 1256 97.9 57 20 105/72 99 OXYGEN 02/08 1241 97.9 60 20 123/73 99 OXYGEN 02/08 1240 97.9 68 20 114/77 99 OXYGEN 02/08 1240 97.9 68 20 123/74 99 OXYGEN 02/08 1236 97.9 71 20 124/75 99 OXYGEN 02/08 1235 97.9 71 20 129/78 99 OXYGEN 02/08 1220 97.9 71 20 129/78 99 02/08 1125 2 02/08 1011 20 Current Medications Morphine Sulfate 0 .STK-MED ONE .ROUTE (DCr) Diltiazem HCl 180 MG DAILY PO Lisinopril 20 MG DAILY PO Furosemide 20 MG ONCE ONE IV (DC) Morphine Sulfate 0 .STK-MED ONE .ROUTE (DCr) Morphine Sulfate 0 .STK-MED ONE .ROUTE (DCr) Morphine Sulfate 0 .STK-MED ONE .ROUTE (DCr) Morphine Sulfate 0 .STK-MED ONE .ROUTE (DCr) Morphine Sulfate 5 MG Q2HP PRN IV Morphine Sulfate 0 .STK-MED ONE .ROUTE (DCr) Morphine Sulfate 0 .STK-MED ONE .ROUTE (DCr) Metoprolol Tartrate 25 MG BID PO Insulin Human [rDNA origin] 0 .STK-MED ONE SC (DC) Metoprolol Tartrate 0 .STK-MED ONE .ROUTE (DC) Metoprolol Tartrate 0 .STK-MED ONE .ROUTE (DC) Pantoprazole Sodium 0 .STK-MED ONE IV (DC) Pantoprazole Sodium 40 MG QHS IV Ketorolac Tromethamine 30 MG ONCE ONE IV (DC) Clopidogrel Bisulfate 75 MG DAILY PO Diltiazem HCl 120 MG DAILY PO (DC) Iopamidol 60 ML ONCE ONE IV (DC) Aspirin 81 MG DAILY PO (r) Gabapentin 800 MG TID PO Lisinopril 40 MG DAILY PO (DC) Polyethylene Glycol 17 GM DAILY PO Sodium Chloride 10 ML PRN PRN IV Sodium Chloride 1,000 ML .Q25H IV Fentanyl Citrate 25 MCG PRN PRN IV (DC) Fentanyl Citrate 50 MCG PRN PRN IV (DC) Flumazenil 0.2 MG PRN PRN IV (DC) Heparin Sodium/Sodium Chloride 3,000 UNITS PRN PRN IV (DC) Midazolam HCl 1 MG PRN PRN IV (DC) Midazolam HCl 1 MG PRN PRN IV (DC) Naloxone HCl 0.4 MG [id number] PRN IV (DC) Nitroglycerin 800 MCG PRN PRN IV (DC) Verapamil HCl 5 MG PRN PRN IV (DC) Sodium Chloride 10 ML PRN PRN IV Diagnostic Test (Pha) 1 EACH W/MEALS&HS FS Insulin Human [rDNA origin] SEE ADMIN CRITERIA FOR LOW INTENSITY SS W/MEALS&HS SC Acetaminophen 650 MG Q4HP PRN PO Nicotine 21 MG DAILYP PRN TD Ondansetron HCl 4 MG Q6HP PRN IV Sodium Chloride 1,000 ML .[id number] IV Diltiazem HCl 100 MG ONCE ONE IV (DC) Sodium Chloride 100 ML Sodium Chloride 10 ML PRN PRN IV (DC) Sodium Chloride 10 ML PRN PRN IV (DC) Last VS-Temp:98.1 B/P:157/88 Pulse:56 Resp:16 SaO2:90 OXYGEN Last weight lbs:209 oz:6 K.971 Method:Bed Scales Exam General appearance: normal appearance, alert, active, awake, no acute distress Eyes: normal exam ENT: normal exam Neck: normal inspection, full range of motion Cardiovascular: normal exam, regular rate & rhythm Respiratory: normal exam, clear to auscultation, chest non-tender, no respiratory distress ABD: normal exam, soft Genitourinary: normal voiding & quantity Extremities: normal exam, warm Musculoskeletal: normal exam, normal gait Skin: normal exam, intact, warm Neuro: normal exam, alert, intact, oriented Reviewed: allergies, medications, vital signs, lab results, radiology report, consult note Assessment/Plan Problem List 1. Cardiac arrhythmia Qualifiers: Arrhythmia type: supraventricular tachycardia Qualified Code: I47.1 - Supraventricular tachycardia 2. SVT (supraventricular tachycardia) 3. 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 Non-STEMI (non-ST elevated myocardial infarction) Patient condition Stable Plan: initiate discharge plan This inpt stay is expected to cross 2 MNs from start of care Yes Comments: ROUNDED WITH MARSHALL, DISCUSSED WITH YANET at 0943
[2016-07-11 09:45] VITALS: BP 157/88
--- NOTE | 2016-07-11 09:45 | DISCHARGE SUMMARY STANDARD ---
Demographics Admit date: 07/10/16 Discharge date: 07/11/16 History of present illness History of present illness 55-year-old black male with known diabetes, hypertension, hyperlipidemia and mild coronary disease with previous cath in April 2015 present to the emergency department last evening for chest discomfort, pressure, heaviness. Symptoms onset at rest. In the emergency department heart rate of found to be in the 170s beats per minute range. Electrocardiogram revealed supraventricular tachycardia with inferior and lateral ST segment depression. Patient had been treated with 3 doses of adenosine in route in the ambulance without success in converting the patient was sinus rhythm. He was given IV Cardizem in the emergency room with subsequent conversion to sinus rhythm. Patient relates symptoms dramatically improved but have not completely resolved. He complains of a soreness in the chest which is worse with movement and deep breathing. Patient 's troponins have returned positive overnight. Cardiology consulted for further evaluation and treatment. Patient does relate recent hospitalization at [facility] for similar episode. He was referred to cardiology for possible ablation therapy in June but the patient was unable to keep the appointment and has not rescheduled. He states the metoprolol to his placed on has not significantly altered frequency or duration of the symptoms. Hospital Course Hospital Course: SVT- CARDIZEM CONVERTED,NONSTEMI-CONSULT CARDILOGY, CATH- MEDICATION MANGEMENT, Discharge diagnoses Problem List 1. Cardiac arrhythmia 2. SVT (supraventricular tachycardia) 3. Diabetes mellitus 4. Non-STEMI (non-ST elevated myocardial infarction) Medications Medications: Discharge meds are as noted. Follow up Follow up in office in: 7 DAYS with: Marshall CAMARA,Ranjan Brooks Comment: ROUNDED WITH MARSHALL, WILL NEED TO FOLLOW UP WITH HIEU IN 2 WEEKS at 0992
[2016-07-11] MEDS ORDERED: LISINOPRIL40 MG PO (09:49)
[2016-07-11] MEDS ORDERED: LISINOPRIL 20MG20 MG PO (09:50)
[2016-07-11 11:00] VITALS: BP 157/88
== END 2016-07-11 11:10 | disposition home or self-care (01) ==
LOC: ER 00:21 → 2ND 01:11
PROVIDERS: Emergency Medicine; Internal Medicine
PROC: 4A023N7 Measurement of Cardiac Sampling and Pressure, Left Heart, Percutaneous Approach (ICD-10-PCS; principal; 2016-07-10 09:45)
PROC: B2151ZZ Fluoroscopy of Left Heart using Low Osmolar Contrast (ICD-10-PCS; principal; 2016-07-10 09:45)
PROC: B2111ZZ Fluoroscopy of Multiple Coronary Arteries using Low Osmolar Contrast (ICD-10-PCS; principal; 2016-07-10 09:45)
DX: I21.4 Non-ST elevation (NSTEMI) myocardial infarction (principal); I25.10 Atherosclerotic heart disease of native coronary artery without angina pectoris; I25.83 Coronary atherosclerosis due to lipid rich plaque; E11.9 Type 2 diabetes mellitus without complications; I10 Essential (primary) hypertension; Z72.0 Tobacco use; I47.1 Supraventricular tachycardia
CPT/HCPCS: C1725; C1769; G0378; G6040; J1644; Q9967

== ENCOUNTER 2016-09-11 16:24 | Emergency (ER) | payer MEDICAID ==
[~2016-09-11] VITALS: Ht 167.6 cm; Wt 86.2 kg
[~2016-09-11 16:24] MED LIST changes: +ASPIR 8181 MG PO; +ATORVASTATIN CA10 M1 PO; +CLOPIDOGREL75 M1 PO; +GLIPIZIDE10 M3 PO; +HYDROCHLOROTHIA1 TA2 PO; +LOPRESSOR 25MG.25 MG PO; +TIAZAC180 MG PO
--- NOTE | 2016-09-11 16:27 | Emergency Room Report ---
History of Present Illness Time Seen by [id number] Presenting Problem in Triage Pt arrived:Walked Presenting Problem:CHEST PAIN FOR SEVERAL DAYS WENT IN TO SEE HIS PCP AND WAS SENT HERE. 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 N Clinical Suspician of Infection? N Mental Status: 1 - Regular (Normal Baseline) Sepsis Risk:Low Sepsis Risk Have you (or family members/close friends) recently traveled outside the [place]? N If Yes, where/when: Have you had exposure to infectious disease within the past month? TB? Other? Specify: Comment Patient complains of RIGHT sided chest pain which is been present for 3-4 days. It is constant but increases with deep breathing and coughing. He radiates to his back. He feels short of breath. He says he coughed up some blood and then has also been coughing up some green sputum. No fever. No leg pain or swelling. He had a recent hospitalization in July and had a coronary angiogram for a non-ST elevation myocardial infarction. He has a history of supraventricular tachycardia. He denies prior history of pneumonia. ALLERGIES Coded Allergies: naproxen (Mild, NA-NAUSEA/VOMITING 09/11/16) tramadol (Mild, NA-NAUSEA 09/11/16) Home Medications Active Scripts Cyclobenzaprine Hcl (Flexeril) 5 MG PO Q8HP PRN spasm #6 TAB Prov: 06/27/16 ACETAMINOPHEN/DIPHENHYDRAMINE (Percogesic Extra Str Caplet) 1 TAB PO QIDP PRN pain #30 TAB Prov: 03/07/16 DILTIAZEM HCL (Tiazac 180MG) 180 MG PO DAILY 30 Days Prov: 07/11/16 CLOPIDOGREL BISULFATE (Clopidogrel) 75 MG PO DAILY 30 Days Prov: 07/11/16 Metoprolol Tartrate (Lopressor) 25 MG PO BID 30 Days Prov: 07/11/16 Aspirin (Aspirin EC 81MG Tab) 81 MG PO DAILY 30 Days Prov: 07/11/16 Lisinopril (Lisinopril 40MG) 20 MG PO DAILY #30 TAB Prov: 07/11/16 LISINOPRIL (Lisinopril) 20 MG PO DAILY 30 Days Prov: 07/11/16 Reported Medications Gabapentin (Gabapentin 800MG) 800 MG PO Q8 #90 Potassium Chloride (POTASSIUM CHLORIDE 10mEq CAP) 10 MEQ PO BID #60 Glipizide (Glipizide ER) 10 MG PO DAILY #30 TER Atorvastatin Calcium 10 MG PO QHS #30 TAB Furosemide 40 MG PO DAILY #30 TAB METFORMIN HCL (Metformin HCl) 850 MG PO BID #60 Aspirin (Aspirin EC) 81 MG PO DAILY #30 Clonazepam (Clonazepam 1MG) 1 MG PO TID #90 History Medical History General CAD? No Angina: Yes AL: No Hypertension? Yes Hyperlipidemia? Yes CHF? Yes DVT? No PE? No COPD? Yes Asthma? No Anemia? No GERD? No Gastric ulcers? No GI Bleed? No Hernia? No Thyroid Problems? No Hypothyroidism? No CVA? No Seizures? No Diabetes? Yes Insulin Dependent: No Insulin Pump: No Home FSBS? No Renal Insuffiency? Yes End Stage Renal Disease? No UTI? No Stones? Yes BPH? Yes GB Disease: Yes Nephritic Syndrome? No Asplenia? No Hepatitis? No Sickle Cell Disease? No Arthritis? Yes Migraines? No Cataracts? No Glaucoma? No MRSA? No HIV? No TB? No Anxiety? Yes Depression? Yes Cancer? No More? Yes Additional hx: SVT Immunization Hx DT/Tetanus Unknown Flu Refused Pneumonia Refuses Surgical Hx Previous Surgery?Y GALLBLADDER R KNEE X2 L SHOULDER X 2 Family History Family Hx Diabetes Yes CAD Yes Hypertension Yes Hyperlipidemia Yes Cancer Yes TB No Social History Smoking Hx Packs/day < 1 Pack Alcohol Alcohol: Yes Additionial History Additional History Cardiac cath report reviewed. Mild luminal irregularities in the left anterior descending and nondominant circumflex artery. Moderate bob-[id number]-[id number] atheromatous plaque throughout the proximal mid distal dominant RIGHT coronary artery. Review of Systems All Other Systems Reviewed and Negative Constitutional denies fever Respiratory cough, shortness of breath Cardiovascular chest pain, denies edema Physical Exam Vital Signs Vital Signs Date Time Temp Pulse Resp B/P Pulse O2 O2 Flow FiO2 Ox Delivery Rate 09/11 1625 98.6 75 18 134/74 100 General Appearance normal appearance, WD/WN Eye Exam - bilateral eye normal exam, bilateral eye PERRL, bilateral eye EOMI Ear, Nose, Throat hearing grossly normal, normal ENT inspection Neck normal inspection, non-tender, supple, full range of motion Respiratory Status Yes: trachea midline, chest symmetrical, tender on palpation (Reproducible RIGHT anterior), non productive cough. No: respiratory distress. Lung Sounds bilateral: normal breath sounds, lungs clear. 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 No Irving was queried for this patient? Yes Reference #: [id number] Comment 6 rxs, last rx 21 tylenol with codeine on 07/19/16 Results/Orders Laboratory Tests 09/11/16 1630: Sodium 143, Potassium 3.9, Chloride 107, Carbon Dioxide 27, BUN 6 L, Creatinine 0.9, Estimated Creat Clear 116, Estimated GFR (MDRD) 88, Glucose 146 H, Calcium 8.9, Total Bilirubin 0.6, AST 13 L, ALT 19, Alkaline Phosphatase 89, Creatine Kinase 159, CK-MB (CK-2) Rel Index 0.7, CK and CKMB Interp 1.1, Troponin I < 0.02, Total Protein 7.2, Albumin 3.2 L, Globulin 4.0 H, Albumin/Globulin Ratio 0.8 L, D-Dimer 392, WBC 6.3, RBC 4.44 L, Hgb 14.4, Hct 44.0, MCV 99.2 H, RDW 13.2, Plt Count 283, MPV 5.9 L, Gran % 70.2, Gran # 4.5, Lymphocytes % 22.5, Monocytes % 5.1, Eosinophils % 1.8, Basophils % 0.4, Lymphocytes # 1.4, Monocytes # 0.3, Eosinophils # 0.1, Basophils # 0.0, PUBS MCHC 32.8, MCH 32.5 H Current Medication Orders Sig/Gia Start time Last Medication Dose Route Stop Time Status Admin Aspirin 325 MG ONCE ONE 09/11 1645 DCr 09/11 PO 09/11 1646 1637 Sodium Chloride 10 ML PRN PRN 09/11 1645 AC IV 09/12 1635 Aspirin 0 .STK-MED ONE 09/11 1632 DCr .ROUTE Orders Procedure Date/time Status ELECTROCARDIOGRAM REQUEST 09/11 1636 Active CHEST(2 VIEWS-NOT PORTABLE) 09/11 1636 Active IV SALINE LOCK 09/11 1636 Active D-DIMER 09/11 1636 Complete CBC WITH AUTO DIFF 09/11 1636 Complete CARDIAC ENZYMES 09/11 1636 Complete CHEM 12 PROFILE 09/11 1636 Complete CM/EKG CM/EKG Comments EKG interpreted by Quincy Buchanan MD: Rhythm: sinus Rate: 75 Cooter: normal Ectopy: none Conduction: normal ST Segment Changes: none T Wave Changes: none Q Waves: none No evidence of acute ischemia or injury Baseline wander present, but I consider the EKG adequate for accurate interpretation. XRAY/CT/US XRAY/CT/US XRAY chest Comment X-ray interpreted by Quincy Buchanan M.D.: Bullous disease (old) upper lobes. No infiltrates seen. Progress - I estimate there is LOW risk for PULMONARY EMBOLISM, ACUTE CORONARY SYNDROME, OR THORACIC AORTIC DISSECTION, thus I consider the discharge disposition reasonable. Departure Departure Disposition DC Home or Self Care(routine) Clinical Impression Primary Impression: Acute bronchitis Qualifiers: Bronchitis organism: unspecified organism Qualified Code: J20.9 - Acute bronchitis, unspecified Secondary Impressions: Chest wall pain Condition STABLE Referrals Jose Zuluaga (Family) Patient Instructions DI for Acute Bronchitis Additional Instructions Additional instructions for ACUTE BRONCHITIS: Use Tylenol for pain or fever. Rest and plenty of fluids. Return immediately if you have an uncontrollable fever greater than 102 degrees, severe headache or neck stiffness, difficulty breathing or shortness of breath, persistent vomiting , severe sore throat or inability to swallow. See your physician if not improving in 4-5 days. Additional instructions for CHEST PAIN: See your physician as soon as possible for further evaluation. Return immediately if worsening chest pain, vomiting, shortness of breath, fever, coughing of blood. Prescriptions Current Visit Scripts Azithromycin (Zithromycin (Z-DIAMOND) 250MG Tab) 250 MG PO DAILY #6 TAB TAKE TWO (2) TABLETS ON DAY 1, THEN ONE (1) TABLET DAY #2 THRU #5 Benzonatate (Tessalon Perle) 100 MG PO TID #15 SGL ED Critical Care Critical Care No at 2417
[2016-09-11 16:45] LABS: HEMOGLOBIN 14.4 g/dL (14.1-18.0); LYMPH # 1.4 K/mm3 (0.7-4.5); LYMPH % 22.5 % (10-50)
[2016-09-11 17:14] LABS: BUN 6 mg/dL (7-18); GFR (ESTIMATED) 88 ML/MIN (>60)
[2016-09-11] MEDS ORDERED: ZITHROMAX Z PA250 MG PO (17:25)
[2016-09-11] MEDS ORDERED: TESSALON PERLE100 M1 PO (17:25)
[2016-09-11 17:51] VITALS: BP 134/74
--- NOTE | 2016-09-12 09:21 | RADIOLOGY REPORT PS360 ---
CHEST(2 VIEWS-NOT PORTABLE) HISTORY: Chest pain CP ORDERING PHYSICIAN: Quincy Buchanan MD PATIENT AGE: 55 years COMPARISON: 07 10 16 FINDINGS: The cardiomediastinal silhouette and pulmonary vascularity are within normal limits. Emphysematous changes are present with bullous change in the right upper lobe and left upper lobe medially. No lobar consolidation or collapse.. There is increased density in the left perihilar region. This however did have a similar appearance on 09/28/2015 No acute bony abnormalities. IMPRESSION: Bullous emphysematous changes, no acute finding
== END 2016-09-11 17:52 | disposition home or self-care (01) ==
LOC: ER 16:24
PROVIDERS: Emergency Medicine
DX: J20.9 Acute bronchitis, unspecified (principal); R07.89 Other chest pain; R06.02 Shortness of breath; Z79.82 Long term (current) use of aspirin; Z79.899 Other long term (current) drug therapy

== ENCOUNTER 2017-01-30 13:35 | Observation (INO) | payer MEDICAID ==
[~2017-01-30] VITALS: Ht 167.6 cm; Wt 82.8 kg
[~2017-01-30 13:35] MED LIST changes: +PENICILLIN VK500 M1 PO; +TESSALON PERLE100 M1 PO; +ZITHROMAX Z PA250 MG PO
[2017-01-30 13:37] VITALS: BP 131/79
[2017-01-30 13:54] LABS: HEMOGLOBIN 13.4 g/dL (14.1-18.0); LYMPH # 1.8 K/mm3 (0.7-4.5); LYMPH % 30.3 % (10-50)
[2017-01-30 14:19] LABS: BUN 17 mg/dL (7-18); GFR (ESTIMATED) 70 ML/MIN (>60)
--- NOTE | 2017-01-30 15:09 | Emergency Room Report ---
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 N Clinical Suspician of Infection? Y Mental Status: 1 - Regular (Normal Baseline) Sepsis Risk:Low Sepsis Risk Have you (or family members/close friends) recently traveled outside the [place]? N If Yes, where/when: Have you had exposure to infectious disease within the past month? TB? Other? Specify: 56 years old -[place] male status post AV node ablation 3 months ago. He was at his primary care physician to check on his heart rate when he complained LEFT sided sharp curette sternal chest pain associated with dizziness. He has no loss of consciousness no palpitations no nausea no vomiting no shotness of air. Patient arrived to the ED and obtained a normal electrocardiogram. Source patient, RN notes reviewed, old records, i reviewed his records from [facility] [place] 01/26/17. Exam Limitations no limitations ALLERGIES Coded Allergies: naproxen (Mild, NA-NAUSEA/VOMITING 01/30/17) tramadol (Mild, NA-NAUSEA 01/30/17) Home Medications Active Scripts HYDROCODONE 5MG/APAP 325MG (Hydrocodon-Acetaminophen 5-325) 1 TAB PO Q4HP PRN pain #15 TAB Prov: 10/19/16 DILTIAZEM HCL (Tiazac 180MG) 180 MG PO DAILY 30 Days Prov: 07/11/16 CLOPIDOGREL BISULFATE (Clopidogrel) 75 MG PO DAILY 30 Days Prov: 07/11/16 Metoprolol Tartrate (Lopressor) 25 MG PO BID 30 Days Prov: 07/11/16 Lisinopril (Lisinopril 40MG) 20 MG PO DAILY #30 TAB Prov: 07/11/16 Reported Medications Gabapentin (Gabapentin 800MG) 800 MG PO Q8 #90 Potassium Chloride (POTASSIUM CHLORIDE 10mEq CAP) 10 MEQ PO BID #60 Atorvastatin Calcium 10 MG PO QHS #30 TAB METFORMIN HCL (Metformin HCl) 850 MG PO BID #60 Aspirin (Aspirin EC) 81 MG PO DAILY #30 Clonazepam (Clonazepam 1MG) 1 MG PO TID #90 History Medical History General CAD? No Angina: Yes ID: No Hypertension? Yes Hyperlipidemia? Yes CHF? Yes DVT? No PE? No COPD? Yes Asthma? No Anemia? No GERD? No Gastric ulcers? No GI Bleed? No Hernia? No Thyroid Problems? No Hypothyroidism? No CVA? No Seizures? No Diabetes? Yes Insulin Dependent: No Insulin Pump: No Home FSBS? No Renal Insuffiency? Yes End Stage Renal Disease? No UTI? No Stones? Yes BPH? Yes GB Disease: Yes Nephritic Syndrome? No Asplenia? No Hepatitis? No Sickle Cell Disease? No Arthritis? Yes Migraines? No Cataracts? No Glaucoma? No MRSA? No HIV? No TB? No Anxiety? Yes Depression? Yes Cancer? No More? Yes Additional hx: SVT, PANCREATITS Immunization Hx Ped.Immunizations UTD Yes DT/Tetanus Unknown Flu Refused Pneumonia Refuses Surgical Hx Previous Surgery?Y GALLBLADDER R KNEE X2 L SHOULDER X 2 Family History Family Hx Diabetes Yes CAD Yes Hypertension Yes Hyperlipidemia Yes Cancer Yes TB No Social History Smoking Hx Smoker: Current Every Day Smoker Tobacco: Yes Type Cigarettes Packs/day < 1 Pack Alcohol Alcohol: Yes Review of Systems All Other Systems Reviewed and Negative Constitutional see HPI (dizziness) Eyes no symptoms reported ENT no symptoms reported. Respiratory no symptoms reported Cardiovascular see HPI, chest pain Gastrointestinal no symptoms reported Genitourinary no symptoms reported. Musculoskeletal no symptoms reported Skin no symptoms reported Psychiatric/Neurological no symptoms reported Physical Exam Vital Signs Vital Signs Date Time Temp Pulse Resp B/P Pulse O2 O2 Flow FiO2 Ox Delivery Rate 01/30 1423 65 16 134/71 97 01/30 1337 97.9 62 18 131/79 97 - WBC >12,000 or <4,000 or 10% bands? 2 or more SIRS Criteria Met? B/P:134/71 MAP:96 Creatinine >2.0? UA output<0.5ml/kg/hr for 2 hrs? Platelet count >100,000? Lactate >2.0mmol/1? INR >1.2 or PTT > than 60 sec? Evidence of Organ Dysfunction? Provider documented clinical suspician of infection? Y Sepsis Criteria Count: 1 Sepsis Risk: Low Sepsis Risk General Appearance normal appearance, WD/WN Eye Exam - bilateral eye normal exam, bilateral eye PERRL, bilateral eye EOMI Ear, Nose, Throat hearing grossly normal, normal ENT inspection Neck normal inspection, non-tender, supple, full range of motion Respiratory Status Yes: trachea midline, chest symmetrical, non tender chest. No: respiratory distress. Lung Sounds bilateral: normal breath sounds, lungs clear. 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 No Results/Orders Laboratory Tests 01/30/17 1325: Amylase 57, Lipase 96 01/30/17 1325: Sodium 143, Potassium 4.1, Chloride 107, Carbon Dioxide 27, BUN 17, Creatinine 1.1, Estimated Creat Clear 92, Estimated GFR (MDRD) 70, Glucose 91, Calcium 9.0, Total Bilirubin 0.7, AST 14 L, ALT 38, Alkaline Phosphatase 107, Creatine Kinase 135, CK-MB (CK-2) Rel Index 0.4, CK and CKMB Interp < 0.5, Troponin I < 0.02, Total Protein 7.5, Albumin 3.9, Globulin 3.6 H, Albumin/Globulin Ratio 1.1, WBC 5.8, RBC 4.18 L, Hgb 13.4 L, Hct 40.2 L, MCV 96.3, RDW 13.1, Plt Count 247, MPV 7.1 L, Gran % 61.7, Gran # 3.6, Lymphocytes % 30.3, Monocytes % 5.9, Eosinophils % 1.5, Basophils % 0.6, Lymphocytes # 1.8, Monocytes # 0.3, Eosinophils # 0.1, Basophils # 0.0, PUBS MCHC 33.4, MCH 32.2 H Current Medication Orders Sig/Gia Start time Last Medication Dose Route Stop Time Status Admin Sodium Chloride 10 ML PRN PRN 01/30 1345 AC IV 01/31 1343 Orders Procedure Date/time Status DIET-NOTHING BY MOUTH 01/[address] ABD/PELVIS REQ 01/30 1347 Active LIPASE 01/30 1346 Complete AMYLASE 01/30 1346 Complete ELECTROCARDIOGRAM REQUEST 01/30 134 Active CHEST-PORTABLE 01/30 134 Active IV SALINE LOCK 01/30 1345 Active CBC WITH AUTO DIFF 01/30 134 Complete CARDIAC ENZYMES 01/30 134 Complete CHEM 12 PROFILE 01/30 1345 Complete CM/EKG CM/EKG EKG sinus bradycardia 59/m normal P , qrs and t waves. no acute findings Departure Departure Time of Disposition 1507 Disposition Still a Patient Clinical Impression Primary Impression: Pre-syncope Secondary Impressions: Chest pain Condition STABLE Referrals Brannon CAMARA,Ranjan Brooks (Family) Additional Instructions I called Dr Brady to admit, discussed with Jose who requested urine drug screen, she will admit and notify Dr Brady of the admission. Discharge Counseling Counseled pt/family regarding diagnosis, test results, medications/RX, home care, follow up needs ED Critical Care Critical Care No If Critical Care minutes are documented, the time involved in the performance of seperately reportable procedures was not counted toward critical care time documented. I directly delivered medical care to this critically ill and/or injured patient. Timely evaluation and treatment was necessary to address the significant organ system(s) dysfunction present in this patient. at 1508
--- NOTE | 2017-01-30 15:21 | RADIOLOGY REPORT PS360 ---
CHEST-PORTABLE HISTORY: Chest pain CP ORDERING PHYSICIAN: Mirtha Swan MD PATIENT AGE: 56 years COMPARISON: 09/11/2016 FINDINGS: The cardiomediastinal silhouette and pulmonary vascularity are within normal limits. Bullous emphysematous changes are present with bullous change in the right apex and left upper lobe medially. No lobar consolidation or collapse. No acute bony anomalies IMPRESSION: Bullous emphysematous changes, no change with no acute finding
[2017-01-30 16:14] LABS: AMPHETAMINES/METAMPHETAMINES NEGATIVE ng/mL (<1000)
[2017-01-30 16:42] VITALS: BP 139/73
--- NOTE | 2017-01-30 16:53 | RADIOLOGY REPORT PS360 ---
CT ABD PELVIS W/ CONTRAST CLINICAL INDICATION: Abdominal pain and discomfort with history of pancreatitis ABD DISCOMFORT ORDERING PHYSICIAN: Ranjan South MD PATIENT AGE: 56 years COMPARISON: 01 09 17 TECHNIQUE: Axial images obtained with sagittal and coronal reformats. PROCEDURE: Oral Contrast: None IV Contrast: 75 mL [id number]. FINDINGS: No acute finding in the lower chest. Prior cholecystectomy. Minimal prominence of the intrahepatic biliary radicles nonspecific and may be related to the previous cholecystectomy. Spleen and adrenal glands have an unremarkable appearance. The head of the pancreas once again noted to have an abnormal appearance with decreased attenuation and heterogeneous density. Does not show any enhancement. This area measures approximately 3.5 x 2.4 cm is not significant change from 01/09/2017. This area is slightly larger than when compared to 03/16/2016. Pancreatic neoplasm cannot be excluded based on this appearance. MRI made for further evaluation. ERCP may also be of further value. This heterogeneous density is present along the superior aspect of the pancreatic head. The inferior aspect of the pancreatic head has an unremarkable appearance. No adenopathy apparent. No evidence of mesenteric masses. The kidneys are unremarkable. No intestinal obstruction or free air. Unremarkable appendix. No evidence of diverticulitis. Bowel gas pattern is nonspecific. IMPRESSION: 1. There is a 3.5 x 2.4 cm masslike lesion in the head of the pancreas. Neoplasm is not excluded. Consider MRI and ERCP for further evaluation
[2017-01-30 17:02] VITALS: BP 139/73
[2017-01-30 19:25] VITALS: BP 127/69
[2017-01-30 19:30] VITALS: BP 127/69
[2017-01-30 23:49] VITALS: BP 115/63
[2017-01-31 04:25] VITALS: BP 119/58
--- NOTE | 2017-01-31 07:38 | PHARMACY CLINIC NOTE ---
Patient Demographics Patient Demographics Admission date: 01/30/17 Date: 01/31/17 Time: 0738 Allergies Coded Allergies: naproxen (Mild, NA-NAUSEA/VOMITING 01/30/17) tramadol (Mild, NA-NAUSEA 01/30/17) HEIGHT- FT: 5 IN: 6.00 K.170 VTE General Information Labs: Laboratory Tests 01/30 1325 Hematology Hgb (14.1 - 18.0 g/dL) 13.4 L Hct (42.0 - 52.0 %) 40.2 L Plt Count (142 - 424 K/mm3) 247 Disclaimer The following section includes nursing documentation that has been pulled in for pharmacy review. Patient's VTE score: 4 Patient's VTE Risk: LOW RISK Clinical trial participant? No VTE prophylaxis [id number] VTE prophylaxis ordered? Yes Type of prophylaxis/treatment: Lovenox at 0738
[2017-01-31 08:00] VITALS: BP 112/60
[2017-01-31 08:15] VITALS: BP 112/60; BP 119/58
[2017-01-31 12:00] VITALS: BP 119/70
--- NOTE | 2017-01-31 13:58 | CONSULT NOTE ---
Standard Demographics Patient Demo Date of Consultation: 01/31/17 Referring Provider: Shivani South MD Reason for Consultation: Chest pain, abdominal pain, palpitations PRIMARY DIAGNOSIS: CP Problem list Problem list: 1. Coronary artery disease, mild nonflow limiting disease by cath 04/2015 and 2. Diabetes mellitus treated since 2007 A. Peripheral neuropathy 3. Tobacco use 4. Hypertension 5. Hyperlipidemia 6. Chronic obstructive pulmonary disease 7. Obesity 8. SVT with elevated troponins, 07/2016. A. repeat cardiac cath showing mild non-flow limiting CAD of LAD and non- dominant Cx with moderate non-flow limiting disease of RCA. LVEDP of 18 mm Hg. Normal LVEF. B. Echo, 07/2016, mildly reduced EF of 50% with distal septal and apical wall hypokinesis. Moderate MR. C. 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 Delia Carlson. Holter monitor, 12/2016 without recurrent supraventricular tachycardia noted. Sinus bradycardia noted. 9. Possible TIA/CVA 2015. Patient has been on Plavix therapy since then. History of present illness: History of present illness: 56-year-old black male with known mild to moderate coronary artery disease by cath in 2014 in 2016 was admitted for observation. Patient was at his primary care physician's office (Dr. South) and complained of some chest discomfort which also included some abdominal discomfort and discomfort under the LEFT arm with concern for angina pectoris. Patient was sent to the emergency department for further evaluation and subsequently admitted. Troponins are returned normal AVNRT ablation therapy in October of this year at the [facility]. He was seen by Dr. Lin 2 days ago for follow-up on a Holter monitor results which showed no recurrence of supraventricular tachycardia. Eyes bradycardia they advised him to stop his diltiazem. Patient denies any syncope or near syncopal symptoms. Patient relates he continues to have one to 2 episodes of palpitations per week which are much improved compared with previous symptoms prior to his ablation therapy. Past Medical History: General: Hypertension Yes CVA No Seizures No TB No COPD Yes Asthma No Diabetes Yes Insulin Dependent No Insulin Pump No Angina Yes [place] No Hyperlipidemia Yes Urinary No Cancer No Rheumatic H.D. No Ulcers No MRSA No GB Disease Yes Other WEEKLY Additional hx SVT, PANCREATITS, AVNRT therapy Past Surgical HX: Previous Surgery?Y GALLBLADDER R KNEE X2 L SHOULDER X 2 Allergies Coded Allergies: naproxen (Mild, NA-NAUSEA/VOMITING 01/30/17) tramadol (Mild, NA-NAUSEA 01/30/17) Home medications: Active Scripts HYDROCODONE 5MG/APAP 325MG (Hydrocodon-Acetaminophen 5-325) 1 TAB PO Q4HP PRN pain #15 TAB Prov: 10/19/16 DILTIAZEM HCL (Tiazac 180MG) 180 MG PO DAILY 30 Days Prov: 07/11/16 CLOPIDOGREL BISULFATE (Clopidogrel) 75 MG PO DAILY 30 Days Prov: 07/11/16 Metoprolol Tartrate (Lopressor) 25 MG PO BID 30 Days Prov: 07/11/16 Lisinopril (Lisinopril 40MG) 20 MG PO DAILY #30 TAB Prov: 07/11/16 Reported Medications Gabapentin (Gabapentin 800MG) 800 MG PO Q8 #90 Potassium Chloride (POTASSIUM CHLORIDE 10mEq CAP) 10 MEQ PO BID #60 Atorvastatin Calcium 10 MG PO QHS #30 TAB METFORMIN HCL (Metformin HCl) 850 MG PO BID #60 Aspirin (Aspirin EC) 81 MG PO DAILY #30 Current Medications: Current Medications Morphine Sulfate 0 .STK-MED ONE .ROUTE (DCr) Enoxaparin Sodium 0 .STK-MED ONE SC (DC) Ondansetron HCl 0 .STK-MED ONE .ROUTE (DC) Morphine Sulfate 0 .STK-MED ONE .ROUTE (DCr) Morphine Sulfate 0 .STK-MED ONE .ROUTE (DCr) Ondansetron HCl 0 .STK-MED ONE .ROUTE (DC) Morphine Sulfate 0 .STK-MED ONE .ROUTE (DCr) Pantoprazole Sodium 40 MG QHS IV Pantoprazole Sodium 0 .STK-MED ONE IV (DC) Morphine Sulfate 2 MG Q4HP PRN IV Ondansetron HCl 4 MG Q6HP PRN IV Morphine Sulfate 0 .STK-MED ONE .ROUTE (DCr) Ondansetron HCl 0 .STK-MED ONE .ROUTE (DC) Enoxaparin Sodium 0 .STK-MED ONE SC (DC) Iopamidol 75 ML ONCE ONE IV (DC) Sodium Chloride 10 ML ONCE ONE IV (DC) Nicotine 21 MG DAILYP PRN TD Sodium Chloride 10 ML PRN PRN IV Enoxaparin Sodium 40 MG DAILY SC Sodium Chloride 10 ML PRN PRN IV (DC) Immunization HX Ped.Immunizations UTD Yes DT/Tetanus 5-10 Years Flu Refused Pneumonia Refuses TB Test in last year No Family history Family HX Family Hx Insignificant No Diabetes Yes CAD Yes Hypertension Yes Hyperlipidemia Yes Cancer Yes TB No Social Hx: Smoking HX Tobacco Yes Type Cigarettes Packs/day < 1 PACK Are you/the child exposed to second-hand smoke: Yes Alcohol Alcohol: No Hx of Drug Use Drug Use? Yes Drug(s) of Choice: marijuana Review of systems: Constitutional No: no symptoms reported. Respiratory No: no symptoms reported. Cardiovascular see HPI, palpitations Gastrointestinal/Abdominal abdominal pain Genitourinary No: no symptoms reported. Musculoskeletal back pain, joint pain. Neurological No: no symptoms reported. Plan: Assessment: 1. Chest pain with atypical features. Troponins normal 3. Electrocardiogram is sinus bradycardia at 59 bpm without acute change. Telemetry shows persistent sinus bradycardia 50's bpm range. 2. Hypertension 3. Recent AVNRT therapy at the [facility] for supraventricular tachycardia 4. Nonobstructive coronary artery disease by cardiac cath 2014 and in 2017 5. Evidence mellitus 6. Chronic obstructive pulmonary disease with continued tobacco use 7. Diabetes mellitus with peripheral neuropathy Recommendations: 1. Would recommend discontinuing diltiazem and metoprolol. If needed for blood pressure control, then would add Norvasc. Currently blood pressure is well controlled. 2. Patient should continue on aspirin, lisinopril, atorvastatin and Plavix. 3. If no arrhythmias documented on telemetry that coincide with patient's complaint of palpitations then would recommend outpatient Holter monitor for 48 hours versus event monitor for 30 days. 4. No further cardiac workup at this time. at 7715
--- NOTE | 2017-01-31 14:53 | HISTORY AND PHYSICAL REPORT ---
Demographics: Admit date: 01/30/17 Chief complaint: chest pain PRIMARY DIAGNOSIS: CP Allergies: Coded Allergies: naproxen (Mild, NA-NAUSEA/VOMITING 01/30/17) tramadol (Mild, NA-NAUSEA 01/30/17) History of present illness: History of present illness: 56-year-old black male with known mild to moderate coronary artery disease by cath in 2014 in 2016 was admitted for observation. Patient was at his primary care physician's office (Dr. South) and complained of some chest discomfort which also included some abdominal discomfort and discomfort under the LEFT arm with concern for angina pectoris. Patient was sent to the emergency department for further evaluation and subsequently admitted. Troponins are returned normal AVNRT ablation therapy in October of this year at the [facility]. He was seen by Dr. Lin 2 days ago for follow-up on a Holter monitor results which showed no recurrence of supraventricular tachycardia. Eyes bradycardia they advised him to stop his diltiazem. Patient denies any syncope or near syncopal symptoms. Patient relates he continues to have one to 2 episodes of palpitations per week which are much improved compared with previous symptoms prior to his ablation therapy. Past medical history: Family HX Diabetes Yes CAD Yes Hypertension Yes Hyperlipidemia Yes Cancer Yes TB No Immunization HX Ped.Immunizations UTD Yes DT/Tetanus 5-10 Years Ago Flu Refused Pneumonia Refuses TB Test in last year No General CAD? No Angina: Yes [place]: No Hypertension? Yes Hyperlipidemia? Yes CHF? Yes DVT? No PE? No COPD? Yes Asthma? No Anemia? No GERD? No Gastric ulcers? No GI Bleed? No Hernia? No Thyroid Problems? No Hypothyroidism? No CVA? No Seizures? No Diabetes? Yes Insulin Dependent: No Insulin Pump: No Home FSBS? No Renal Insuffiency? Yes UTI? No Stones? Yes BPH? Yes GB Disease: Yes Nephritic Syndrome? No Asplenia? No Hepatitis? No Sickle Cell Disease? No Arthritis? Yes Migraines? No Cataracts? No Glaucoma? No MRSA? No HIV? No TB? No Anxiety? Yes Depression? Yes Cancer? No More? Yes Additional hx: SVT, PANCREATITS, AVNRT therapy Past Surgical HX Previous Surgery?Y GALLBLADDER R KNEE X2 L SHOULDER X 2 Current home meds: Active Scripts HYDROCODONE 5MG/APAP 325MG (Hydrocodon-Acetaminophen 5-325) 1 TAB PO Q4HP PRN pain #15 TAB Prov: 10/19/16 DILTIAZEM HCL (Tiazac 180MG) 180 MG PO DAILY 30 Days Prov: 07/11/16 CLOPIDOGREL BISULFATE (Clopidogrel) 75 MG PO DAILY 30 Days Prov: 07/11/16 Metoprolol Tartrate (Lopressor) 25 MG PO BID 30 Days Prov: 07/11/16 Lisinopril (Lisinopril 40MG) 20 MG PO DAILY #30 TAB Prov: 07/11/16 Reported Medications Gabapentin (Gabapentin 800MG) 800 MG PO Q8 #90 Potassium Chloride (POTASSIUM CHLORIDE 10mEq CAP) 10 MEQ PO BID #60 Atorvastatin Calcium 10 MG PO QHS #30 TAB METFORMIN HCL (Metformin HCl) 850 MG PO BID #60 Aspirin (Aspirin EC) 81 MG PO DAILY #30 Social Hx: Smoking HX Tobacco Yes Type Cigarettes Packs/day < 1 PACK Are you/the child exposed to second-hand smoke: Yes Alcohol Alcohol: No Hx of Drug Use Drug Use? No Patien't marital status is single Patient's support system is fair Review of systems: Constitutional No: fever. Eyes No: drainage. Ears, Nose, Mouth, Throat No ear discharge, No epistaxis, No throat pain Respiratory No: cough, shortness of breath, wheezing. Cardiovascular see HPI, chest pain, No palpitations, No syncope Gastrointestinal/Abdominal see HPI, No diarrhea, nausea, poor appetite, poor fluid intake, No vomiting Genitourinary No: dysuria, frequency, hesitancy, hematuria. Musculoskeletal No: back pain, joint pain, joint swelling, neck pain. Skin No: rash. Neurological No: headache, seizure disorder. Psychiatric No: no symptoms reported. Exam: Lab data for last 24 hours: Laboratory Tests 01/31/17 1038: POC Glucose 89 Admission vital signs: 1ST Vital Signs Result Date Time Pulse Ox 97 01/30 1337 B/P 131/79 01/30 1337 Temp 97.9 01/30 1337 Pulse 62 01/30 1337 Resp 18 01/30 1337 O2 Delivery ROOM AIR 01/30 1642 Exam General appearance: alert Eyes: PERRLA ENT: dry mucous membranes Neck: no JVD Cardiovascular: regular rate & rhythm, murmur Respiratory: clear to auscultation, no respiratory distress ABD: soft Genitourinary: no hematuria Extremities: moves all Musculoskeletal: equal muscle strength Skin: dry Neuro: alert, regulatory compliance specialist II-XII nml as tested Additional information: will have card see pt Plan: Problem List 1. Diabetes mellitus 2. Chest pain 3. Pancreatic mass Plan: will have card iveth has hx of ablation in past at 0618
[2017-01-31 16:00] VITALS: BP 119/65
[2017-01-31 19:41] VITALS: BP 120/70
[2017-02-01 00:01] VITALS: BP 134/67
[2017-02-01 04:34] VITALS: BP 114/66
[2017-02-01 07:37] VITALS: BP 114/66
[2017-02-01 08:00] VITALS: BP 121/76
--- NOTE | 2017-02-01 08:27 | ACUTE CARE PROGRESS NOTE (QUA) ---
Progress Notes Subjective Date 02/01/17 Time 0823 Note doing better Patient/family reports: feeling better Nursing reports: no complaints Objective Findings Last VS-Temp:98.6 B/P:114/66 Pulse:49 Resp:16 SaO2:96 ROOM AIR Last weight lbs:182 oz:9 K.809 Method:Bed Scales Exam General appearance: alert, awake Eyes: PERRLA ENT: dry mucous membranes Neck: no JVD Cardiovascular: regular rate & rhythm, murmur Respiratory: clear to auscultation ABD: soft Genitourinary: normal voiding & quantity Extremities: moves all Musculoskeletal: equal muscle strength Skin: dry Neuro: alert, grain unloader II-XII nml as tested Reviewed: allergies, medications, vital signs, lab results, consult note Assessment/Plan Problem List 1. Diabetes mellitus 2. Chest pain 3. Pancreatic mass 4. Bradycardia Patient condition Stable Plan: initiate discharge plan This inpt stay is expected to cross 2 MNs from start of care Yes Comments: will alter meds and follow as op and will continue with about pancreatic mass at 0841
--- NOTE | 2017-02-01 08:27 | ACUTE CARE PROGRESS NOTE (QUA) ---
Progress Notes Subjective Date 02/01/17 Time 0823 Note doing better Patient/family reports: feeling better Nursing reports: no complaints Objective Findings Last VS-Temp:98.6 B/P:114/66 Pulse:49 Resp:16 SaO2:96 ROOM AIR Last weight lbs:182 oz:9 K.809 Method:Bed Scales Exam General appearance: alert, awake Eyes: PERRLA ENT: dry mucous membranes Neck: no JVD Cardiovascular: regular rate & rhythm, murmur Respiratory: clear to auscultation ABD: soft Genitourinary: normal voiding & quantity Extremities: moves all Musculoskeletal: equal muscle strength Skin: dry Neuro: alert, business services manager II-XII nml as tested Reviewed: allergies, medications, vital signs, lab results, consult note Assessment/Plan Problem List 1. Diabetes mellitus 2. Chest pain 3. Pancreatic mass 4. Bradycardia Patient condition Stable Plan: initiate discharge plan This inpt stay is expected to cross 2 MNs from start of care Yes Comments: will alter meds and follow as op and will continue with about pancreatic mass at 0889
--- NOTE | 2017-02-01 08:33 | DISCHARGE SUMMARY STANDARD ---
Demographics Admit date: 01/30/17 Discharge date: 02/01/17 History of present illness History of present illness 56-year-old black male with known mild to moderate coronary artery disease by cath in 2014 in 2016 was admitted for observation. Patient was at his primary care physician's office (Dr. South) and complained of some chest discomfort which also included some abdominal discomfort and discomfort under the LEFT arm with concern for angina pectoris. Patient was sent to the emergency department for further evaluation and subsequently admitted. Troponins are returned normal AVNRT ablation therapy in October of this year at the [facility]. He was seen by Dr. Lin 2 days ago for follow-up on a Holter monitor results which showed no recurrence of supraventricular tachycardia. Eyes bradycardia they advised him to stop his diltiazem. Patient denies any syncope or near syncopal symptoms. Patient relates he continues to have one to 2 episodes of palpitations per week which are much improved compared with previous symptoms prior to his ablation therapy. Hospital Course Hospital Course: pt slowly improved and was seen by [facility] list: 1. Coronary artery disease, mild nonflow limiting disease by cath 04/2015 and 2. Diabetes mellitus treated since 2007 A. Peripheral neuropathy 3. Tobacco use 4. Hypertension 5. Hyperlipidemia 6. Chronic obstructive pulmonary disease 7. Obesity 8. SVT with elevated troponins, 07/2016. A. repeat cardiac cath showing mild non-flow limiting CAD of LAD and non- dominant Cx with moderate non-flow limiting disease of RCA. LVEDP of 18 mm Hg. Normal LVEF. B. Echo, 07/2016, mildly reduced EF of 50% with distal septal and apical wall hypokinesis. Moderate MR. C. 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 Lin D. Holter monitor, 12/2016 without recurrent supraventricular tachycardia noted. Sinus bradycardia noted. 9. Possible TIA/CVA 2015. Patient has been on Plavix therapy since then. History of present illness: History of present illness: 56-year-old black male with known mild to moderate coronary artery disease by cath in 2014 in 2016 was admitted for observation. Patient was at his primary care physician's office (Dr. South) and complained of some chest discomfort which also included some abdominal discomfort and discomfort under the LEFT arm with concern for angina pectoris. Patient was sent to the emergency department for further evaluation and subsequently admitted. Troponins are returned normal AVNRT ablation therapy in October of this year at the [facility]. He was seen by Dr. Lin 2 days ago for follow-up on a Holter monitor results which showed no recurrence of supraventricular tachycardia. Eyes bradycardia they advised him to stop his diltiazem. Patient denies any syncope or near syncopal symptoms. Patient relates he continues to have one to 2 episodes of palpitations per week which are much improved compared with previous symptoms prior to his ablation therapy. Past Medical History: General: Hypertension Yes CVA No Seizures No TB No COPD Yes Asthma No Diabetes Yes Insulin Dependent No Insulin Pump No Angina Yes [place] No Hyperlipidemia Yes Urinary No Cancer No Rheumatic H.D. No Ulcers No MRSA No GB Disease Yes Other WEEKLY Additional hx SVT, PANCREATITS, AVNRT therapy Past Surgical HX: Previous Surgery?Y GALLBLADDER R KNEE X2 L SHOULDER X 2 Allergies Coded Allergies: naproxen (Mild, NA-NAUSEA/VOMITING 01/30/17) tramadol (Mild, NA-NAUSEA 01/30/17) Home medications: Active Scripts HYDROCODONE 5MG/APAP 325MG (Hydrocodon-Acetaminophen 5-325) 1 TAB PO Q4HP PRN pain #15 TAB Prov: 10/19/16 DILTIAZEM HCL (Tiazac 180MG) 180 MG PO DAILY 30 Days Prov: 07/11/16 CLOPIDOGREL BISULFATE (Clopidogrel) 75 MG PO DAILY 30 Days Prov: 07/11/16 Metoprolol Tartrate (Lopressor) 25 MG PO BID 30 Days Prov: 07/11/16 Lisinopril (Lisinopril 40MG) 20 MG PO DAILY #30 TAB Prov: 07/11/16 Reported Medications Gabapentin (Gabapentin 800MG) 800 MG PO Q8 #90 Potassium Chloride (POTASSIUM CHLORIDE 10mEq CAP) 10 MEQ PO BID #60 Atorvastatin Calcium 10 MG PO QHS #30 TAB METFORMIN HCL (Metformin HCl) 850 MG PO BID #60 Aspirin (Aspirin EC) 81 MG PO DAILY #30 Current Medications: Current Medications Morphine Sulfate 0 .STK-MED ONE .ROUTE (DCr) Enoxaparin Sodium 0 .STK-MED ONE SC (DC) Ondansetron HCl 0 .STK-MED ONE .ROUTE (DC) Morphine Sulfate 0 .STK-MED ONE .ROUTE (DCr) Morphine Sulfate 0 .STK-MED ONE .ROUTE (DCr) Ondansetron HCl 0 .STK-MED ONE .ROUTE (DC) Morphine Sulfate 0 .STK-MED ONE .ROUTE (DCr) Pantoprazole Sodium 40 MG QHS IV Pantoprazole Sodium 0 .STK-MED ONE IV (DC) Morphine Sulfate 2 MG Q4HP PRN IV Ondansetron HCl 4 MG Q6HP PRN IV Morphine Sulfate 0 .STK-MED ONE .ROUTE (DCr) Ondansetron HCl 0 .STK-MED ONE .ROUTE (DC) Enoxaparin Sodium 0 .STK-MED ONE SC (DC) Iopamidol 75 ML ONCE ONE IV (DC) Sodium Chloride 10 ML ONCE ONE IV (DC) Nicotine 21 MG DAILYP PRN TD Sodium Chloride 10 ML PRN PRN IV Enoxaparin Sodium 40 MG DAILY SC Sodium Chloride 10 ML PRN PRN IV (DC) Immunization HX Ped.Immunizations UTD Yes DT/Tetanus 5-10 Years Flu Refused Pneumonia Refuses TB Test in last year No Family history Family HX Family Hx Insignificant No Diabetes Yes CAD Yes Hypertension Yes Hyperlipidemia Yes Cancer Yes TB No Social Hx: Smoking HX Tobacco Yes Type Cigarettes Packs/day < 1 PACK Are you/the child exposed to second-hand smoke: Yes Alcohol Alcohol: No Hx of Drug Use Drug Use? Yes Drug(s) of Choice: marijuana Review of systems: Constitutional No: no symptoms reported. Respiratory No: no symptoms reported. Cardiovascular see HPI, palpitations Gastrointestinal/Abdominal abdominal pain Genitourinary No: no symptoms reported. Musculoskeletal back pain, joint pain. Neurological No: no symptoms reported. Plan: Assessment: 1. Chest pain with atypical features. Troponins normal 3. Electrocardiogram is sinus bradycardia at 59 bpm without acute change. Telemetry shows persistent sinus bradycardia 50's bpm range. 2. Hypertension 3. Recent AVNRT therapy at the [facility] for supraventricular tachycardia 4. Nonobstructive coronary artery disease by cardiac cath 2014 and in 2017 5. Evidence mellitus 6. Chronic obstructive pulmonary disease with continued tobacco use 7. Diabetes mellitus with peripheral neuropathy Recommendations: 1. Would recommend discontinuing diltiazem and metoprolol. If needed for blood pressure control, then would add Norvasc. Currently blood pressure is well controlled. 2. Patient should continue on aspirin, lisinopril, atorvastatin and Plavix. 3. If no arrhythmias documented on telemetry that coincide with patient's complaint of palpitations then would recommend outpatient Holter monitor for 48 hours versus event monitor for 30 days. 4. No further cardiac workup at this time. at 1358 at 1505 <Electronically signed by Yoshi DIXON> 01/31/17 1358 <Electronically signed by Farooq Arroyo MD> 01/31/17 1505 I: 01/31/17 AT: 1336 Discharge diagnoses Problem List 1. Diabetes mellitus 2. Chest pain 3. Pancreatic mass 4. Bradycardia Medications Medications: Discharge meds are as noted. Follow up Follow up in office in: 5 DAYS with: Jose Zuluaga Comment: will hold meds and see in office for loop recorder or echo at 5255
[2017-02-01 09:22] VITALS: BP 121/76
== END 2017-02-01 09:20 | disposition home or self-care (01) ==
LOC: ER 13:35 → 2ND 14:50
PROVIDERS: Emergency Medicine
DX: R07.9 Chest pain, unspecified (principal); I10 Essential (primary) hypertension; J44.9 Chronic obstructive pulmonary disease, unspecified; E10.42 Type 1 diabetes mellitus with diabetic polyneuropathy; K86.9 Disease of pancreas, unspecified; R00.1 Bradycardia, unspecified
CPT/HCPCS: G0378; J2405; Q9967

== ENCOUNTER 2017-02-11 13:40 | Emergency (ER) | payer MEDICAID ==
[~2017-02-11] VITALS: Ht 167.6 cm; Wt 85.3 kg
[2017-02-11] MEDS ORDERED: ROBAXIN-750750 MG PO (14:53)
--- NOTE | 2017-02-11 14:56 | Emergency Room Report ---
History of Present Illness Time Seen by 134Yvan Presenting Problem in Triage Pt arrived:Walked Presenting Problem:PT REPORTS PAIN ACROSS THE BASE OF HIS NECK X4 DAYS, DESCRIBES PAIN ACHING IN NATURE. DENIES KNOWN INJURY OR CAUSE FOR PAIN. 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 N Clinical Suspician of Infection? N Mental Status: 1 - Regular (Normal Baseline) Sepsis Risk:Low Sepsis Risk Have you (or family members/close friends) recently traveled outside the [place]? N If Yes, where/when: Have you had exposure to infectious disease within the past month? N TB? Other? Specify: 56 years old -[place] male with multiple medical problems well known to me from prior visits because of back pain. He developed LEFT sided neck pain radiating to the LEFT upper extremity associated with numbness all of the second and third digits. His pain medicine is not working. He was a patient of the pain clinic and he was dismissed. He is currently out of his Percocet 5. He denies having fever or chills nausea vomiting neck stiffness. The the patient denies having chest pain palpitations shortness of air, loss of urine or bowel control. Source patient, RN notes reviewed, old records Exam Limitations no limitations ALLERGIES Coded Allergies: naproxen (Mild, NA-NAUSEA/VOMITING 01/30/17) tramadol (Mild, NA-NAUSEA 01/30/17) Home Medications Active Scripts CLOPIDOGREL BISULFATE (Clopidogrel) 75 MG PO DAILY 30 Days Prov: 07/11/16 Lisinopril (Lisinopril 40MG) 20 MG PO DAILY #30 TAB Prov: 07/11/16 Reported Medications Gabapentin (Gabapentin 800MG) 800 MG PO Q8 #90 Atorvastatin Calcium 10 MG PO QHS #30 TAB METFORMIN HCL (Metformin HCl) 850 MG PO BID #60 Aspirin (Aspirin EC) 81 MG PO DAILY #30 History Medical History General CAD? No Angina: Yes [place]: No Hypertension? Yes Hyperlipidemia? Yes CHF? Yes DVT? No PE? No COPD? Yes Asthma? No Anemia? No GERD? No Gastric ulcers? No GI Bleed? No Hernia? No Thyroid Problems? No Hypothyroidism? No CVA? No Seizures? No Diabetes? Yes Insulin Dependent: No Insulin Pump: No Home FSBS? No Renal Insuffiency? Yes End Stage Renal Disease? No UTI? No Stones? Yes BPH? Yes GB Disease: Yes Nephritic Syndrome? No Asplenia? No Hepatitis? No Sickle Cell Disease? No Arthritis? Yes Migraines? No Cataracts? No Glaucoma? No MRSA? No HIV? No TB? No Anxiety? Yes Depression? Yes Cancer? No More? Yes Additional hx: SVT, PANCREATITS, AVNRT therapy Immunization Hx DT/Tetanus 5-10 Years Ago Flu Refused Pneumonia Refuses Surgical Hx Previous Surgery?Y GALLBLADDER R KNEE X2 L SHOULDER X 2 Family History Family Hx Diabetes Yes CAD Yes Hypertension Yes Hyperlipidemia Yes Cancer Yes TB No Social History Smoking Hx Smoker: Current Every Day Smoker Tobacco: Yes Type Cigarettes Packs/day < 1 Pack Alcohol Alcohol: No Review of Systems All Other Systems Reviewed and Negative Constitutional no symptoms reported Eyes no symptoms reported ENT no symptoms reported. Respiratory no symptoms reported Cardiovascular no symptoms reported Gastrointestinal no symptoms reported Genitourinary no symptoms reported. Musculoskeletal see HPI, back pain, neck pain Skin no symptoms reported Psychiatric/Neurological no symptoms reported Physical Exam Vital Signs Vital Signs Date Time Temp Pulse Resp B/P Pulse O2 O2 Flow FiO2 Ox Delivery Rate 02/11 1434 56 18 137/82 98 02/11 1344 98.1 60 20 134/86 98 - WBC >12,000 or <4,000 or 10% bands? 2 or more SIRS Criteria Met? B/P:137/82 MAP:102 Creatinine >2.0? UA output<0.5ml/kg/hr for 2 hrs? Platelet count >100,000? Lactate >2.0mmol/1? INR >1.2 or PTT > than 60 sec? Evidence of Organ Dysfunction? Provider documented clinical suspician of infection? N Sepsis Criteria Count: 1 Sepsis Risk: Low Sepsis Risk General Appearance normal appearance, WD/WN Eye Exam - bilateral eye normal exam, bilateral eye PERRL, bilateral eye EOMI Ear, Nose, Throat hearing grossly normal, normal ENT inspection Neck normal inspection, there was no midline tenderness but there was tenderness to palpation of the LEFT trapezius muscle. Respiratory Status Yes: trachea midline, chest symmetrical, non tender chest. No: respiratory distress. Lung Sounds bilateral: normal breath sounds, lungs clear. 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 no limitation of range of motion of major joints. Deep tendon reflexes are 2+ equal symmetrical. Babinski was downgoing. no meningeal signs negative Kernig's and brudzenski's. Reflexes Reflexes normal Yes Skin intact, normal color, warm/dry Medical Decision Making LABS/Meds/Orders Pt receiving controlled substance in ED? No Departure Departure Time of Disposition 1449 Disposition DC Home or Self Care(routine) Clinical Impression Primary Impression: Trapezius muscle strain Secondary Impressions: Cervical radiculopathy at C7, Chronic pain, Diabetes, Hypertension Condition STABLE Referrals Brannon CAMARA,Kam Brooks Additional Instructions 1- the patient was advised to get with his pcp for a cervical MRI and obtain another pain clinic referral. 2- Rest, ICY hot and warm compresses. 3- robaxin. 4- return for any change or if you develop fever. 5- avoid clod air to the neck. Discharge Counseling Counseled pt/family regarding diagnosis, test results, medications/RX, home care, follow up needs Prescriptions Current Visit Scripts Methocarbamol (Robaxin 750MG) 750 MG PO Q8HP PRN spasm #12 TAB ED Critical Care Critical Care No If Critical Care minutes are documented, the time involved in the performance of seperately reportable procedures was not counted toward critical care time documented. I directly delivered medical care to this critically ill and/or injured patient. Timely evaluation and treatment was necessary to address the significant organ system(s) dysfunction present in this patient. at [id number]
[2017-02-11 15:08] VITALS: BP 137/82
== END 2017-02-11 15:09 | disposition home or self-care (01) ==
LOC: ER 13:40
DX: S29.012A Strain of muscle and tendon of back wall of thorax, initial encounter (principal); X58.XXXA Exposure to other specified factors, initial encounter; Y92.9 Unspecified place or not applicable; M54.12 Radiculopathy, cervical region; G89.29 Other chronic pain; E11.9 Type 2 diabetes mellitus without complications; I11.0 Hypertensive heart disease with heart failure; I50.9 Heart failure, unspecified; J44.9 Chronic obstructive pulmonary disease, unspecified; Z79.84 Long term (current) use of oral hypoglycemic drugs; Z79.899 Other long term (current) drug therapy

== ENCOUNTER → 2017-02-17 | Outpatient (CLI) | payer MEDICAID ==
[2017-02-17 19:56] LABS: AMPHETAMINES/METAMPHETAMINES NEGATIVE ng/mL (<1000)
== END ==
LOC: LAB 17:34
PROVIDERS: Emergency Medicine
DX: Z79.899 Other long term (current) drug therapy (principal)

== ENCOUNTER → 2017-03-07 | Outpatient (CLI) | payer MEDICAID ==
[2017-03-07 16:30] LABS: AMPHETAMINES/METAMPHETAMINES NEGATIVE ng/mL (<1000)
== END ==
LOC: LAB 15:53
PROVIDERS: Emergency Medicine
DX: Z79.899 Other long term (current) drug therapy (principal)

== ENCOUNTER 2017-03-20 18:27 | Emergency (ER) | payer MEDICAID ==
[~2017-03-20] VITALS: Ht 167.6 cm; Wt 84.8 kg
--- NOTE | 2017-03-20 19:21 | Emergency Room Report ---
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 N Clinical Suspician of Infection? N Mental Status: 1 - Regular (Normal Baseline) Sepsis Risk:Low Sepsis Risk Have you (or family members/close friends) recently traveled outside the [place]? N If Yes, where/when: Have you had exposure to infectious disease within the past month? N TB? Other? Specify: Patient with cough over the past several days, no fever, no sputum; has hx of COPD. 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 Has left sided muscular pain with coughing only. Denies rash but has hx shingles. No SOB. No n/v or diaphoresis. No calf pain. No flu sx ALLERGIES Coded Allergies: naproxen (Mild, NA-NAUSEA/VOMITING 01/30/17) tramadol (Mild, NA-NAUSEA 01/30/17) Home Medications Active Scripts Methocarbamol (Robaxin 750MG) 750 MG PO Q8HP PRN spasm #12 TAB Prov: 02/11/17 CLOPIDOGREL BISULFATE (Clopidogrel) 75 MG PO DAILY 30 Days Prov: 07/11/16 Lisinopril (Lisinopril 40MG) 20 MG PO DAILY #30 TAB Prov: 07/11/16 Reported Medications Gabapentin (Gabapentin 800MG) 800 MG PO Q8 #90 Atorvastatin Calcium 10 MG PO QHS #30 TAB METFORMIN HCL (Metformin HCl) 850 MG PO BID #60 Aspirin (Aspirin EC) 81 MG PO DAILY #30 History Medical History General CAD? No Angina: Yes [place]: No Hypertension? Yes Hyperlipidemia? Yes CHF? Yes DVT? No PE? No COPD? Yes Asthma? No Anemia? No GERD? No Gastric ulcers? No GI Bleed? No Hernia? No Thyroid Problems? No Hypothyroidism? No CVA? No Seizures? No Diabetes? Yes Insulin Dependent: No Insulin Pump: No Home FSBS? No Renal Insuffiency? Yes End Stage Renal Disease? No UTI? No Stones? Yes BPH? Yes GB Disease: Yes Nephritic Syndrome? No Asplenia? No Hepatitis? No Sickle Cell Disease? No Arthritis? Yes Migraines? No Cataracts? No Glaucoma? No MRSA? No HIV? No TB? No Anxiety? Yes Depression? Yes Cancer? No More? Yes Additional hx: SVT, PANCREATITS, AVNRT therapy Immunization Hx DT/Tetanus 5-10 Years Ago Flu Refused Pneumonia Refuses Surgical Hx Previous Surgery?Y GALLBLADDER R KNEE X2 L SHOULDER X 2 Family History Family Hx Diabetes Yes CAD Yes Hypertension Yes Hyperlipidemia Yes Cancer Yes TB No Social History Smoking Hx Smoker: Current Every Day Smoker Tobacco: Yes Type Cigarettes Packs/day < 1 Pack Alcohol Alcohol: No Review of Systems All Other Systems Reviewed and Negative Respiratory see HPI Musculoskeletal see HPI Physical Exam Vital Signs Vital Signs Date Time Temp Pulse Resp B/P Pulse O2 O2 Flow FiO2 Ox Delivery Rate 03/20 1930 98.4 77 24 138/88 98 03/20 1839 98.8 74 20 131/82 97 General Appearance normal appearance (OP wet), WD/WN, no apparent distress Eye Exam - bilateral eye normal exam, bilateral eye PERRL, bilateral eye EOMI Ear, Nose, Throat hearing grossly normal, normal pharynx (very slightly cloudy), abnormal TM (L) Neck normal inspection (trachea midline), non-tender, supple, full range of motion Respiratory Status Yes: trachea midline, chest symmetrical, tender on palpation, non productive cough (L pectoralis/lat spasm/tender). No: respiratory distress, non tender chest, use of accessory muscles, pain on inspiration, pain on expiration, productive cough. Lung Sounds bilateral: normal breath sounds (no subcutaneous air), lungs clear. Cardiovascular normal exam, regular rate/rhythm, no peripheral edema, no gallop, no JVD, no murmur, no rub, normal peripheral pulses Gastrointestinal normal bowel sounds, normal exam, non tender, soft, no organomegaly, no pulsatile mass, no guarding, no rebound Extremities non-tender, normal range of motion, normal inspection, normal capillary refill, no calf tenderness, no pedal edema Strength 5 Upper Ext (L), 5 Upper Ext (R), 5 Lower Ext (L), 5 Lower Ext (R) Neurologic alert, normal exam, no motor/sensory deficits, oriented x 3 Glascow Coma Scale Glascow Coma Scale Response Value EYE response: 4 Spontaneously 4 MOTOR response: 6 OBEYS 6 VERBAL response: 5 Oriented & Converses 5 Total 15 Skin intact, normal color, warm/dry, no rash cons.w/shingles Lymphatic no adenopathy Medical Decision Making LABS/Meds/Orders Pt receiving controlled substance in ED? No Results/Orders Orders Procedure Date/time Status [id number] VIEWS 03/20 1843 Active XRAY/CT/US XRAY/CT/US XRAY chest XR interpretation by reviewed by me Xray Results normal/NAD, bullae central left noted on prior CXR from 01/30/17; COPD pattern; neg acute Progress ED Progress Notes Date 03/20/17 Time 1944 Comment Patient offered Toradol, now states he's allergic to Toradol. Departure Departure Time of Disposition 1944 Disposition DC Home or Self Care(routine) Clinical Impression Primary Impression: Musculoskeletal pain Secondary Impressions: Cough Condition STABLE Referrals Brannon CAMARA,Ranjan Brooks (Family) Patient Instructions DI for Musculoskeletal Pain Additional Instructions Continue Ibuprofen: you may take up to 800 mg (four tablets at 200 mg each) every six hours as needed; Rx Flexeril; see Dr. South in one day for recheck. Recommend Robitussin DM over the counter. Discharge Counseling Counseled pt/family regarding diagnosis, test results, medications/RX, home care, follow up needs Prescriptions Current Visit Scripts Cyclobenzaprine Hcl (Flexeril) 10 MG PO BID PRN musculoskeletal pain #6 TAB ED Critical Care Critical Care No at 1949
[2017-03-20] MEDS ORDERED: FLEXERIL10 MG PO (19:49)
[2017-03-20 20:09] VITALS: BP 138/88
--- NOTE | 2017-03-20 22:23 | RADIOLOGY REPORT PS360 ---
[id number] VIEWS HISTORY: COUGH X2-3 DAYS; SEVERE LT RIB PAIN TODAY ORDERING PHYSICIAN: Babita Davis MD PATIENT AGE: 56 years COMPARISON: 09/11/2016 FINDINGS: A frontal view of the chest shows bolus emphysematous changes. No obvious pneumothorax.. Multiple views of the Left ribs were obtained. No fracture or dislocation. No lytic or blastic change. IMPRESSION: 1. Negative RIBS. If pain persists, consider follow-up exam in 7-[address] with 3-D reformats. 2. Bullous emphysematous changes
== END 2017-03-20 20:11 | disposition home or self-care (01) ==
LOC: ER 18:27
DX: M79.1 Myalgia (principal); J44.9 Chronic obstructive pulmonary disease, unspecified; E78.5 Hyperlipidemia, unspecified; I11.0 Hypertensive heart disease with heart failure; I50.9 Heart failure, unspecified; E11.9 Type 2 diabetes mellitus without complications; F17.210 Nicotine dependence, cigarettes, uncomplicated; Z88.5 Allergy status to narcotic agent; Z79.84 Long term (current) use of oral hypoglycemic drugs; Z79.82 Long term (current) use of aspirin; Z79.899 Other long term (current) drug therapy

== ENCOUNTER → 2017-03-21 | Outpatient (CLI) | payer MEDICAID ==
[2017-03-21 16:22] LABS: HEMOGLOBIN 13.5 g/dL (14.1-18.0); LYMPH # 1.7 K/mm3 (0.7-4.5); LYMPH % 16.8 % (10-50)
== END ==
LOC: LAB 15:28
PROVIDERS: Nurse Practitioner Family
DX: R53.83 Other fatigue (principal)

== ENCOUNTER → 2017-03-27 | Outpatient (CLI) | payer MEDICAID ==
[2017-03-28 09:38] LABS: Iron 90 ug/dL (38-169); Iron Saturation 32 % (15-55); UIBC 193 ug/dL (111-343)
== END ==
LOC: LAB 12:21
PROVIDERS: Nurse Practitioner Family
DX: R53.83 Other fatigue (principal)

== ENCOUNTER → 2017-04-07 | Outpatient (CLI) | payer MEDICAID ==
[2017-04-07 15:18] LABS: AMPHETAMINES/METAMPHETAMINES NEGATIVE ng/mL (<1000)
== END ==
LOC: LAB 13:53
PROVIDERS: Emergency Medicine
DX: Z79.899 Other long term (current) drug therapy (principal)

== ENCOUNTER → 2017-05-06 | Outpatient (CLI) | payer MEDICAID ==
[2017-05-06 13:35] LABS: AMPHETAMINES/METAMPHETAMINES NEGATIVE ng/mL (<1000)
== END ==
LOC: LAB 12:36
PROVIDERS: Emergency Medicine
DX: Z79.899 Other long term (current) drug therapy (principal)